=== PATIENT | male | born 1980 | race Caucasian/White ===

== ENCOUNTER 2020-12-28 09:05 | Outpatient (CLI) | payer BC, SELFPAY ==
--- NOTE | ~2020-12-28 | XR_ITS ---
XR chest 2V 12/28/2020 09:48 Indication: Chronic cough Procedure: 2 view chest Comparison: No prior studies for comparison. Findings: Heart size normal. Right lung clear. Left basilar atelectasis. No focal pneumonia, edema, p leural effusion or pneumothorax. Impression: 1: Left basilar atelectasis. Reviewed, dictated and finalized at location B. Impression: 1: Left basilar atelectasis.
--- NOTE | 2020-12-28 09:12 | ECG_ITS ---
Measurements Intervals [place] Rate: 56 P: 56 [place]: 165 QRS: 34 QRSD: 93 T: 41 QT: 392 QTc: 379 Interpretive Statements SINUS BRADYCARDIA BORDERLINE ECG Electronically Signed On 12-28-2020 10:38:55 CDT by Dave Nickerson D.O.
[2020-12-28 09:23] LABS: Basophils Absolute Auto 0.05 K/mm3 (0.00-0.10); Basophils Percent Auto 0.7 % (0.0-1.0); Eosinophils Absolute Auto 0.24 K/mm3 (0.02-0.50); Eosinophils Percent Auto 3.3 % (1.0-6.0); Hematocrit 46.3 % (40.0-54.0); Hemoglobin 15.8 g/dL (14.0-18.0); Immature Granulocyte Absolute 0.02 K/mm3 (0.00-0.00); Immature Granulocyte Percent A 0.3 % (0.0-0.0); Lymphocytes Absolute Auto 2.32 K/mm3 (1.10-4.50); Lymphocytes Percent Auto 32.1 % (18.0-42.0); Mean Corpuscular HGB Conc 34.1 g/dL (32.0-36.0); Mean Corpuscular Hemoglobin 33.5 pg (27.0-31.0); Mean Corpuscular Volume 98.3 fL (78.0-102.0); Mean Platelet Volume 9.1 fl (8.7-11.0); Monocytes Absolute Auto 0.56 K/mm3 (0.10-0.90); Monocytes Percent Auto 7.7 % (2.0-11.0); Neutrophils Percent Auto 55.9 % (50.0-70.0); Platelet Count Result 186 K/mm3 (150-420); Red Blood Count 4.71 M/mm3 (4.70-6.10); White Blood Count 7.2 K/mm3 (4.8-10.8)
[2020-12-28 09:42] LABS: Hemoglobin A1C 5.6 % (<5.7)
[2020-12-28 10:15] LABS: Alanine Aminotransferase 28 U/L (16-63); Alkaline Phosphatase 50 U/L (46-116); Anion Gap 11 mmol/L (8-16); Aspartate Amino Transferase 14 U/L (15-37); Bilirubin,Total 0.4 mg/dL (0.00-1.00); Blood Urea Nitrogen 15 mg/dL (7-18); Calcium 9.2 mg/dL (8.5-10.1); Carbon Dioxide 29 mmol/L (21-32); Chloride 103 mmol/L (98-108); Cholesterol 219 mg/dL (0-200); Estimated Glomerular Filt Rate > 60; Ferritin 200 ng/mL (26-388); Glucose 98 mg/dL (70-99); HDL Direct 53 mg/dL (40-60); Iron 121 ug/dL (65-175); LDL Cholesterol Calculated 132 mg/dL (<130); Osmolality Calculated 296 mOsm/kg (285-295); Percent Iron Saturation 36 % (12-57); Potassium 4.6 mmol/L (3.5-5.1); Sodium 143 mmol/L (136-145); Total Protein 7.2 g/dL (6.4-8.2); Triglycerides 172 mg/dL (0-150)
[2020-12-30 19:19] LABS: Hepatitis C Signal to Cutoff 0.01 ratio (<1.00); Hepatitis C Virus Antibody Nonreactive (Nonreactive)
== END 2020-12-28 09:06 | disposition home or self-care (01) ==
LOC: CHSLAB 09:11
PROVIDERS: PCP Family Medicine; Visit Provider Family Medicine
DX: R53.83 Other fatigue (principal); R05 Cough; Z00.00 Encounter for general adult medical examination without abnormal findings; Z11.59 Encounter for screening for other viral diseases
CPT/HCPCS: 36415; 71046; 80053; 80061; 82728; 83036; 83540; 83550; 84443; 85025; 93005

== ENCOUNTER 2021-02-06 09:43 | Outpatient (CLI) | payer BC, SELFPAY ==
--- NOTE | ~2021-02-06 | XR_ITS ---
XR hip RT min 2V DATE: 02/06/2021 11:37 INDICATION: Overall body sinus. Ankylosing spondylitis. TECHNIQUE: AP and lateral views COMPARISON: None FINDINGS: No fracture, dislocation, avascular necrosis or bone destruction. Right hip joint space fran ears well preserved. The pubic symphysis and right sacral joint appear intact. IMPRESSION: Negative Reviewed, dictated and finalized at location B. IMPRESSION: Negative
--- NOTE | ~2021-02-06 | XR_ITS ---
XR knee LT 3V DATE: 02/06/2021 11:37 INDICATION: Left knee pain. Overall body stiffness. Ankylosing spondylitis. TECHNIQUE: [place], AP and lateral views COMPARISON: None FINDINGS: No fracture or dislocation or joint effusion. No periosteal reaction or bone destruction. N o radiopaque intra-articular loose body or chondrocalcinosis. Joint spaces are well preserved. IMPRESSION: Negative Reviewed, dictated and finalized at location B. IMPRESSION: Negative
--- NOTE | ~2021-02-06 | XR_ITS ---
XR knee RT 3V DATE: 02/06/2021 11:37 INDICATION: Overall body stiffness. Ankylosing spondylitis. TECHNIQUE: Combine, AP and lateral views COMPARISON: None FINDINGS: No fracture or dislocation or joint effusion. No periosteal reaction or bone destruction. There is slight periarticular spurring of the patella consistent with osteoarthritis. Joint spaces ap pear well preserved. No radiopaque intra-articular loose body or chondrocalcinosis. IMPRESSION: Slight osteoarthritic periarticular spurring of the patella Reviewed, dictated and finalized at location B.
--- NOTE | ~2021-02-06 | XR_ITS ---
XR lumbar spine 2-3V DATE: 02/06/2021 11:36 INDICATION: Overall body stiffness. Ankylosing spondylitis. TECHNIQUE: AP, lateral, coned lateral lumbosacral views COMPARISON: None FINDINGS: Normal alignment of the lumbar spine. There is minimal degenerative spurring at L1-2 and L2 -3. No fracture or bone destruction or spondylolisthesis. The lumbar pedicles are intact. The sacroiliac joints appear normal. IMPRESSION: Minimal degenerative change Reviewed, dictated and finalized at location B. IMPRESSION: Minimal degenerative change
--- NOTE | ~2021-02-06 | XR_ITS ---
XR_CERV2-3V_CR DATE: 02/06/2021 11:36 INDICATION: Overall body stiffness. Ankylosing spondylitis. TECHNIQUE: AP, open-mouth, lateral views COMPARISON: 02/06/2021 thoracic spine FINDINGS: C1 and C2 are normally aligned and the odontoid process is intact. No fracture or dislocati on or locked facet or prevertebral soft tissue swelling. Cervical interspaces appear relatively prese rved. IMPRESSION: No significant abnormality Reviewed, dictated and finalized at Location A. Reviewed, dictated and finalized at location B. IMPRESSION: No significant abnormality
--- NOTE | ~2021-02-06 | XR_ITS ---
XR thoracic spine 2V DATE: 02/06/2021 11:36 INDICATION: Overall body stiffness. Ankylosing spondylitis. TECHNIQUE: Lateral, AP and swimmer views COMPARISON: None FINDINGS: Minimal upper thoracic levoscoliosis. No fracture or dislocation or bone destruction. The thoracic pedicles are intact. There is minimal degenerative spurring of the thoracic spine. IMPRESSION: Minimal degenerative spurring Minimal upper thoracic levoscoliosis Reviewed, dictated and finalized at location B.
--- NOTE | ~2021-02-06 | XR_ITS ---
XR hip LT min 2V DATE: 02/06/2021 11:36 INDICATION: Overall body stiffness. Ankylosing spondylitis. TECHNIQUE: AP and lateral views COMPARISON: None FINDINGS: No fracture or dislocation, avascular necrosis or bone destruction of the left hip is detec sarath. The pubic symphysis and sacroiliac joint appear normal. IMPRESSION: No significant abnormality Reviewed, dictated and finalized at location B. IMPRESSION: No significant abnormality
== END 2021-02-06 09:44 | disposition home or self-care (01) ==
LOC: CHSCARD 09:44
PROVIDERS: PCP Internal Medicine; Visit Provider Internal Medicine
DX: R06.02 Shortness of breath (principal); R05 Cough; M45.9 Ankylosing spondylitis of unspecified sites in spine
CPT/HCPCS: 72040; 72070; 72100; 73502; 73562; 94060; 94726; 94729; 95012

== ENCOUNTER 2021-02-10 08:25 | Outpatient (CLI) | payer BC, SELFPAY ==
--- NOTE | ~2021-02-10 | CT_ITS ---
EXAMINATION: CT sinus wo con DATE: 02/10/2021 09:15 INDICATION: Chronic sinusitis TECHNIQUE: Computed tomography (CT) of the paranasal sinuses was performed without contrast. Iterativ e reconstruction technique was employed. Exam dose: 289.66 mGy-cm total exam DLP. COMPARISON: None FINDINGS: There is leftward deviation of the lower nasal septum and mild rightward bowing of the uppe r nasal septum. The nasal turbinates are moderately prominent, right greater than left. The ostiomeatal units are patent bilaterally. 11 mm and 8 mm right maxillary sinus mucous retention cysts or polyps. 5.8 mm lower medial left maxil antonino mucous retention cyst or polyp. Mild focal soft tissue thickening in the frontoethmoid areas, right greater than left and mild mucope riosteal thickening of the ethmoid air cells. Sphenoid sinuses are unremarkable. The mastoid air cells are normally developed and aerated. Middle and inner ear apparatus appear unrem arkable bilaterally. IMPRESSION: Leftward deviation of the lower nasal septum and mild rightward bowing of the upper port ion of the nasal septum Mild soft tissue thickening of the frontoethmoid recesses, right greater than left Bilateral maxillary sinus mucous retention cysts or polyps Reviewed, dictated and finalized at Location A. Reviewed, dictated and finalized at location B. IMPRESSION: Leftward deviation of the lower nasal septum and mild rightward chad wing of the upper portion of the nasal septum Mild soft tissue thickening of the frontoethmoid recesses, right greater than l eft Bilateral maxillary sinus mucous retention cysts or polyps
--- NOTE | ~2021-02-10 | CT_ITS ---
EXAMINATION: CT diagnostic chest w con DATE: 02/10/2021 09:15 INDICATION: Left basilar opacity on chest radiograph TECHNIQUE: Transaxial computed tomographic images of the chest were obtained after the administration of 75 cc of Omnipaque 350 intravenous contrast. The dose-length product (DLP) was 735.71 mGy-cm. Ite rative reconstruction was used. COMPARISON: 12/28/2020 FINDINGS: The lungs are free acute opacities. There is mild atelectasis of the lingula and right midd le lobe. There is no pleural effusion or pneumothorax. There are a few scattered small pulmonary nodu les which measure up to 4 mm, likely old granulomatous disease. No pathologically enlarged thoracic l ymph nodes are identified. The heart size is normal. There is calcified coronary artery atheroscleros is. There is mild thoracic spondylosis. IMPRESSION: 1. No acute cardiopulmonary abnormality. 2. Coronary artery atherosclerosis, somewhat unexpected for patient age. Reviewed, dictated and finalized at location A.
[2021-02-10 08:52] LABS: Estimated Glomerular Filt Rate > 60
== END 2021-02-10 08:26 | disposition home or self-care (01) ==
LOC: CHSIMG 08:28
PROVIDERS: PCP Internal Medicine; Visit Provider Internal Medicine
DX: J32.9 Chronic sinusitis, unspecified (principal); R91.8 Other nonspecific abnormal finding of lung field
CPT/HCPCS: 70486; 71260; Q9967

== ENCOUNTER 2021-03-20 09:24 | Outpatient (CLI) | payer BC, SELFPAY ==
--- NOTE | 2021-03-20 10:10 | EST_ITS ---
Patient Info Name: Imtiaz Ballesteros Age: 40 years : 1980 Gender: Male Ht: 74 in Wt: 234 lbs BSA: 2.38 m2 Exam Date: 03/20/2021 10:14 AM Exam Location: [facility] Patient Status: Outpatient Admit Date: 03/20/2021 Staff Ordering Physician: Vashti Dixon MD Attending Provider: Vashti Dixon MD Exam Type: CA stress test treadmill Study Info A treadmill exercise stress test was performed. History/Risk Factors Family History: Coronary Artery Disease History/Risk Factors Fam hx, calcium build up found around heart. Summary 1. 1. Negative Rajat exercise stress test for ischemic ST changes by ECG criteria. 2. 2. Good functional capacity, achieving 10 METs of workload. 3. 3. Appropriate HR response to exercise. 4. 4. Appropriate HR recovery at 1 minute post exercise. 5. 5. No imaging with stress testing. Protocol: Rajat Stress ECG Details Stage: REST Duration (min): 0 min : 57 sec Speed (mph): 0.0 Grade (%): 0 HR (bpm): 69 SBP (mmHg): 122 DBP (mmHg): 81 METS: --- Stage: REST Duration (min): 2 min : 18 sec Speed (mph): 0.0 Grade (%): 0 HR (bpm): 70 SBP (mmHg): 122 DBP (mmHg): 81 METS: --- Stage: STAGE 1 Duration (min): 1 min : 0 sec Speed (mph): 1.7 Grade (%): 10 HR (bpm): 98 SBP (mmHg): 122 DBP (mmHg): 81 METS: --- Stage: STAGE 1 Duration (min): 2 min : 0 sec Speed (mph): 1.7 Grade (%): 10 HR (bpm): 105 SBP (mmHg): 122 DBP (mmHg): 81 METS: --- Stage: STAGE 1 Duration (min): 3 min : 0 sec Speed (mph): 1.7 Grade (%): 10 HR (bpm): 101 SBP (mmHg): 158 DBP (mmHg): 73 METS: --- Stage: STAGE 2 Duration (min): 1 min : 0 sec Speed (mph): 2.5 Grade (%): 12 HR (bpm): 110 SBP (mmHg): 158 DBP (mmHg): 73 METS: --- Stage: STAGE 2 Duration (min): 2 min : 0 sec Speed (mph): 2.5 Grade (%): 12 HR (bpm): 113 SBP (mmHg): 158 DBP (mmHg): 73 METS: --- Stage: STAGE 2 Duration (min): 3 min : 0 sec Speed (mph): 2.5 Grade (%): 12 HR (bpm): 113 SBP (mmHg): 168 DBP (mmHg): 85 METS: --- Stage: STAGE 3 Duration (min): 1 min : 0 sec Speed (mph): 3.4 Grade (%): 14 HR (bpm): 140 SBP (mmHg): 168 DBP (mmHg): 85 METS: --- Stage: STAGE 3 Duration (min): 2 min : 0 sec Speed (mph): 3.4 Grade (%): 14 HR (bpm): 160 SBP (mmHg): 168 DBP (mmHg): 85 METS: --- Stage: STAGE 3 Duration (min): 2 min : 0 sec Speed (mph): 3.4 Grade (%): 14 HR (bpm): 160 SBP (mmHg): 168 DBP (mmHg): 85 METS: --- Stage: RECOVERY Duration (min): 0 min : 59 sec Speed (mph): 0.0 Grade (%): 0 HR (bpm): 129 SBP (mmHg): 169 DBP (mmHg): 82 METS: --- Stage: RECOVERY Duration (min): 1 min : 59 sec Speed (mph): 0.0 Grade (%): 0 HR (bpm)
== END 2021-03-20 09:25 | disposition home or self-care (01) ==
LOC: CHSCARD 09:25
PROVIDERS: PCP Internal Medicine; Visit Provider Internal Medicine
DX: I25.10 Atherosclerotic heart disease of native coronary artery without angina pectoris (principal)
CPT/HCPCS: 93017

== ENCOUNTER 2023-09-18 16:27 | Outpatient (CLI) | payer BC, SELFPAY ==
--- NOTE | ~2023-09-18 | XR_ITS ---
EXAMINATION: XR chest 2V DATE: 09/18/2023 16:46 INDICATION: Atherosclerotic heart disease of [place] coronary artery. Preventative screening. TECHNIQUE: PA and lateral views of the chest were obtained. COMPARISON: Chest CT dated 02/10/21 FINDINGS: The lungs remain clear with no focal airspace opacities, pulmonary edema, pleural effusion or pneumot horax. The cardiomediastinal silhouette is normal. Mild thoracic spondylosis. IMPRESSION: 1. No acute cardiopulmonary disease. Reviewed, dictated and finalized at location B.
== END 2023-09-18 16:28 | disposition home or self-care (01) ==
LOC: CHSIMG 16:29
PROVIDERS: PCP Internal Medicine; Visit Provider Internal Medicine
DX: Z00.00 Encounter for general adult medical examination without abnormal findings (principal)
CPT/HCPCS: 71046

== ENCOUNTER 2023-10-21 18:52 | Emergency (ER) | payer BC, SELFPAY ==
[2023-10-21] VITALS (10 sets, daily range): BP systolic 112–136; BP diastolic 70–87; PULSE 74–93; RESP 17–21; TEMP 36.6–37.2; O2SAT 95–98
--- NOTE | ~2023-10-21 | XR_ITS ---
EXAMINATION: XR chest 1V portable DATE: 10/21/2023 19:38 INDICATION: Syncope. TECHNIQUE: A single frontal view of the chest was obtained on 2 radiographs. COMPARISON: Chest 2 views 09/18/2023 FINDINGS: There is no pneumonia, pleural effusion, or pneumothorax. The heart size is normal. IMPRESSION: 1. No acute cardiopulmonary disease. Reviewed, dictated and finalized at location E.
--- NOTE | ~2023-10-21 | CT_ITS ---
EXAMINATION: CT cervical spine wo con DATE: 10/21/2023 20:13 INDICATION: Syncope. Fall. TECHNIQUE: Computed tomography (CT) of the cervical spine was performed without intravenous contrast. Automated exposure control and iterative reconstruction technique were employed. The dose-length pro duct was 605.33 mGy-cm. COMPARISON: None FINDINGS: There is 6 degrees dextrocurvature of cervical spine. There is mild kyphosis of cervical sp ine. Vertebral body heights are normal. There is mildly decreased disc height at C5-C6. The following disc levels are specifically discussed: C2-C3: There is mild bilateral uncovertebral joint osteoarthritis. There is moderate bilateral facet joint osteoarthritis. There is no neural foraminal stenosis. There is no central canal stenosis. C3-C4: There is no uncovertebral joint osteoarthritis. There is mild right and moderate left facet katty int osteoarthritis. There is no neural foraminal stenosis. There is no central canal stenosis. C4-C5: There is no uncovertebral joint osteoarthritis. There is no facet joint osteoarthritis. There is no neural foraminal stenosis. There is no central canal stenosis. C5-C6: There is mild bilateral uncovertebral joint osteoarthritis. There is no facet joint osteoarthr itis. There is no neural foraminal stenosis. There is mild central canal stenosis. C6-C7: There is no uncovertebral joint osteoarthritis. There is moderate bilateral facet joint osteoa rthritis. There is no neural foraminal stenosis. There is no central canal stenosis. C7-T1: There is no uncovertebral joint osteoarthritis. There is severe bilateral facet joint osteoart hritis. There is mild bilateral neural foraminal stenosis. There is no central canal stenosis. IMPRESSION: 1. No fracture. 2. Mild cervical spondylosis. Reviewed, dictated and finalized at location E.
--- NOTE | ~2023-10-21 | CT_ITS ---
EXAMINATION: CT brain wo con DATE: 10/21/2023 20:13 INDICATION: Syncope. Fall. TECHNIQUE: Computed tomography (CT) of the head was performed without intravenous contrast. The mA wa s adjusted according to patient size. Iterative reconstruction technique was employed. The dose-lengt h product was 605.33 mGy-cm. COMPARISON: None FINDINGS: There is no intracranial hemorrhage, acute infarction, or abnormal intracranial mass lesion . The ventricles are normal in size. The orbits are normal. There is mucosal thickening in the parana ligia sinuses. There is a right mastoid effusion. There is a left otomastoid effusion. IMPRESSION: 1. Normal brain. Reviewed, dictated and finalized at location E. IMPRESSION: 1. Normal brain.
--- NOTE | 2023-10-21 19:11 | ECG_ITS ---
SEE SCANNED COPY FOR CONFIRMED REPORT MTDD
[2023-10-21 19:29] LABS: Basophils Absolute Auto 0.04 K/mm3 (0.00-0.10); Basophils Percent Auto 0.5 % (0.0-1.0); Eosinophils Absolute Auto 0.12 K/mm3 (0.02-0.50); Eosinophils Percent Auto 1.5 % (1.0-6.0); Hematocrit 42.5 % (40.0-54.0); Hemoglobin 13.9 g/dL (14.0-18.0); Immature Granulocyte Absolute 0.02 K/mm3 (0.00-0.00); Immature Granulocyte Percent A 0.3 % (0.0-0.0); Lymphocytes Absolute Auto 3.61 K/mm3 (1.10-4.50); Lymphocytes Percent Auto 46.2 % (18.0-42.0); Mean Corpuscular HGB Conc 32.7 g/dL (32-36); Mean Corpuscular Hemoglobin 31.6 pg (27.0-31.0); Mean Corpuscular Volume 96.6 fL (78.0-102.0); Mean Platelet Volume 9.3 fl (8.7-11.0); Monocytes Absolute Auto 0.61 K/mm3 (0.10-0.90); Monocytes Percent Auto 7.8 % (2.0-11.0); Neutrophils Absolute Auto 3.41 K/mm3 (1.70-7.20); Neutrophils Percent Auto 43.7 % (50.0-70.0); Platelet Count Result 146 K/mm3 (150-420); Red Cell Distribution Width 12.8 % (11.6-14.4); White Blood Count 7.8 K/mm3 (4.8-10.8)
[2023-10-21] MEDS: SODIUM CHLORIDE 0.9% IV 2,000 ML 999 ML IV CONT (19:48)
[2023-10-21] MEDS: ACETAMINOPHEN 500 MG TABLET 1000 MG PO (19:50)
[2023-10-21 19:52] LABS: Alanine Aminotransferase 35 U/L (16-63); Albumin Level 3.6 g/dL (3.4-5.0); Alkaline Phosphatase 42 U/L (46-116); Anion Gap 11 mmol/L (4-12); Aspartate Amino Transferase 22 U/L (15-37); Bilirubin,Total 0.3 mg/dL (0.00-1.00); Blood Urea Nitrogen 20 mg/dL (7-18); Calcium 8.2 mg/dL (8.5-10.1); Carbon Dioxide 24 mmol/L (21-32); Chloride 105 mmol/L (98-108); Creatine Kinase 254 U/L (39-308); Estimated Glomerular Filt Rate > 60; Ethanol 19 mg/dL (0-6); Glucose 95 mg/dL (70-99); NT Pro B Type Natriuretic Pept 12 pg/mL (0-125); Osmolality Calculated 292 mOsm/kg (285-295); Potassium 3.3 mmol/L (3.5-5.1); Sodium 140 mmol/L (136-145); Total Protein 6.8 g/dL (6.4-8.2); Troponin I 8.9 ng/L (0.00-60.4)
[2023-10-21 20:39] LABS: Amphetamine Screen Urine Negative (Negative); Barbiturate Screen Urine Negative (Negative); Benzodiazepines Screen Urine Negative (Negative); Cannabinoid Screen Urine Negative (Negative); Cocaine Screen Urine Negative (Negative); Methadone Screen Urine Negative (Negative); Opiate Screen Urine Negative (Negative); Phencyclidine Screen Urine Negative (Negative)
--- NOTE | 2023-10-21 21:00 | PC.NURSE ---
Pt is alert and answers questions appropriately at this time. He c/o feeling groggy and like his head is in a cloud. Pt reports feeling better c IVF. VSS.
--- NOTE | 2023-10-21 21:07 | ED.GENADULT ---
HPI - General Adult General Chief complaint: Syncope Stated complaint: neck pain History of Present Illness HPI narrative: This is a 43-year-old male presenting ED with chief complaint of syncope. The patient finished work around 4:00 a.m.. He went to his friend's house and had several beers with them. while he was sitting on a bench he lost consciousness and fell backwards and struck the back of his head. He then quickly regained consciousness and low he felt a little woozy he was back to normal. No tongue biting or urinary incontinence. This has happened To the patient 1 time the past although he did not seek medical attention at that time. Patient was out 85 degree heat today although he believes he drink plenty of water. No other symptoms such as current dizziness, chest pain difficulty breathing palpitations nausea vomiting or diarrhea. Related Data Home Medications Medication Instructions Recorded Confirmed montelukast 10 mg tablet 10 mg DAILY 10/21/23 10/21/23 prednisone 10 mg tablet 10 mg DAILY 10/21/23 10/21/23 Allergies Allergy/AdvReac Type Severity Reaction Status Date / Time poison catia extract Allergy Unknown unknown Verified 10/21/23 19:00 [facility] Past Medical History Medical History Allergies Annual visit for general adult medical examination without abnormal findings Chronic sinusitis Cough Encounter for HCV screening test for low risk patient Fatigue Seasonal allergies Surgical History Surgical History History of placement of ear tubes No history of previous surgery Family History Family History Father Family history of type 2 diabetes mellitus Social History Social History Smoking status: Former smoker Tobacco type: cigarettes Alcohol intake: current Substance use: never Substance use type: does not use Living arrangements: with family Additional living arrangements comments: . 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 Gender identity (if verbalized by the patient): Male Exam Narrative: APPEARANCE: No apparent distress. smells of beer Head: atraumatic. EYES: EOMI, NOSE: Atraumatic NECK: paracervical tenderness RESPIRATORY: No increased rate of breathing CTAB CARDIOVASCULAR: RRR, no peripheral edema ABDOMINAL: Non-distended soft nontender MUSCULOSKELETAl: No obvious deformities NEURO: Alert. Cranial nerves 2-12 grossly intact. Sensation light touch, motor function cerebellar function intact for 4 extremities. Gait exam was normal. SKIN:: Warm, dry. Normal color PSYCHIATRIC: Normal affect Course Vital Signs Vital signs: Vital Signs Temperature 98.9 F 10/21/23 18:52 Pulse Rate 87 10/21/23 18:52 Respiratory Rate 20 10/21/23 18:52 Blood Pressure 113/82 10/21/23 18:52 Pulse Oximetry 95 10/21/23 18:52 Oxygen Delivery Room Air 10/21/23 18:52 Temperature 98.9 F 10/21/23 18:52 Pulse Rate 86 10/21/23 20:46 Respiratory Rate 19 10/21/23 20:46 Blood Pressure 134/82 10/21/23 20:46 Pulse Oximetry 97 10/21/23 19:45 Oxygen Delivery Room Air 10/21/23 19:07 Medical Decision Making [facility] Narrative Medical decision making narrative: -Course: 43-year-old male presenting with a syncopal event. workup including EKG laboratory studies chest x-ray and troponin were all negative. Alcohol 19. Patient was fluid resuscitated and states he feels much better. He is able to get up and ambulate without difficulty. No high risk factors to the patient's syncope. He will be discharged follow-up with primary care physician. -DDX includes but is not limited to: Syncope, seizure, narcoleptsy, alcohol intoxication -Co-morbidities complicating care: asthma -Social det
== END 2023-10-21 21:26 | disposition home or self-care (01) ==
PROVIDERS: Emergency Provider Emergency Medicine; PCP Internal Medicine
DX: R55 Syncope and collapse (principal); Z87.891 Personal history of nicotine dependence
CPT/HCPCS: 36415; 70450; 71045; 72125; 80053; 80307; 82550; 83880; 84484; 85025; 93005; 96360; 99284; J7030

== ENCOUNTER 2023-12-04 16:14 | Outpatient (CLI) | payer BC, SELFPAY ==
--- NOTE | 2024-01-06 07:56 | P.PCNHOL_ITS ---
Holter/Event Monitor Holter/Event Monitor Date of procedure: 12/04/23 Holter/Event Procedure: Event Monitor Indications: Syncope Conclusion: 1. 28 days event monitor between 12/04/23-01/02/24. There are 20 available tr ansmissions for analysis. 2. Underlying rhythm is sinus rhythm. HR range 50-120 bpm; average HR 85 bpm. 3. There are occasional premature supraventricular complexes with total burden of 1%. No supraventricular tachycardia. 4. There are occasional premature ventricular complexes with total burden of 1%. No ventricular tachycardia. 5. No significant pauses greater than 2 seconds. 6. Patient reports 14 episodes of symptoms of lightheadedness and symptoms other than listed which demonstrate sinus rhythm, HR range 70-110 bpm with one PAC.
== END 2023-12-04 16:15 | disposition home or self-care (01) ==
LOC: CHSCARD 16:15
PROVIDERS: PCP Internal Medicine; Visit Provider Internal Medicine
DX: R55 Syncope and collapse (principal)
CPT/HCPCS: 93270

== ENCOUNTER 2024-12-11 15:01 | Outpatient (CLI) | payer BC, SELFPAY ==
--- NOTE | ~2024-12-11 | XR_ITS ---
EXAMINATION: XR ribs RT 2V w CXR 2V Exam Date/Time: 12/11/2024 15:08 CDT HISTORY: Injury ribs and chest wall,RT UPPER LATERAL/AXILLARY Comparison: 10/21/2023. RESULT: Lines, tubes, and devices: None. Lungs and pleura: Clear. Cardiothymic silhouette: Stable. Other: No acute osseous or upper abdominal finding. IMPRESSION: No acute cardiopulmonary process. No acute osseous finding in the right ribs. Reviewed, dictated and finalized at location K.
--- OUTSIDE RECORDS SUMMARY | 2024-12-11 15:04 | XMS_ITS | Clinical Summary ---
Author Organization [facility] Address [address] [place] [address] Care Team Providers Care Lav Crewman Name Role Phone Vashti Dixon MD Primary Care Provider + [phone] Allergies Active Allergy Reactions Criticality Noted Date Comments Mold Sneezing Low 10/31/2021 Ragweed Sneezing Low 10/31/2021 Medications celecoxib (CeleBREX) 400 mg capsule Take 1 capsule (400 mg total) by mouth daily 10/02/2021 Active cetirizine (ZyrTEC) 10 mg tablet Take 1 tablet (10 mg total) by mouth daily 09/30/2021 Active fluticasone propionate (FLONASE) 50 mcg/actuation nasal spray INSTILL 2 SPRAYS INTO EACH NOSTRIL EVERY DAY 09/30/2021 Active meloxicam (MOBIC) 7.5 mg tablet Take 1 tablet (7.5 mg total) by mouth daily 30 tablet 2 10/31/2021 Active montelukast (SINGULAIR) 10 mg tablet Take 1 tablet (10 mg total) by mouth nightly Active aspirin 81 mg chewable tablet Take 1 tablet (81 mg total) by mouth daily 30 tablet 11 10/05/2024 Active sertraline (ZOLOFT) 50 mg tablet Take 1 tablet (50 mg total) by mouth daily 30 tablet 1 10/05/2024 Active losartan (COZAAR) 25 mg tablet Take 0.5 tablets (12.5 mg total) by mouth daily 45 tablet 3 11/12/2024 Active atorvastatin (LIPITOR) 10 mg tablet Take 1 tablet (10 mg total) by mouth daily Active Active Problems Problem Noted Date Diagnosed Date Chest pain 10/05/2024 Chest pain due to myocardial ischemia, unspecified ischemic chest pain type 10/03/2024 Encounters Date Type Department Care Team Description 12/01/2024 Orders Only [facility] [address] [place] [id number] Dayday Moore NP 11/12/2024 10:45 AM CDT Office Visit [facility] at [facility] [address] [facility] [address] [place] [id number] Dayday Moore NP Chest pain due to myocardial ischemia, unspecified ischemic chest pain type (Primary Dx); Hypertension, unspecified type; Hyperlipidemia, unspecified hyperlipidemia type 10/08/2024 [facility] Post Discharge Follow up phone call [facility] [address] [place] [address] Karen Carroll 10/05/2024 1:00 PM CDT - 10/05/2024 2:05 PM CDT Surgery [facility] Cardiac Catheterization [address] [place] [address] Cuba Jade MD CORONARY ANGIOGRAPHY [id number] 10/03/2024 9:46 AM CDT - 10/05/2024 3:12 PM CDT Hospital Encounter [facility] IMU [address] [place] [address] Lacy العراقي MD Sinha, Chandni, MD Nikolic, Jelena, MD Chest pain due to myocardial ischemia, unspecified ischemic chest pain type (Primary Dx) Discharge Disposition: Discharge to home or self care 10/03/2024 9:28 AM CDT - 10/03/2024 11:59 PM CDT Hospital Encounter [facility] Emergency, Room R Discharge Disposition: Discharge to home or self care from Last 3 Months Surgical History Surgery Date Site/Laterality Comments CARDIAC CATHETERIZATION 10/05/2024 N/A Procedure: CORONARY ANGIOGRAPHY [id number]; Surgeon: Cuba Jade MD; Location: [facility] CARDIAC TECHNICAL SUPERVISOR; Service: Cardiovascular; Laterality: N/A; CARDIAC CATHETERIZATION 10/05/2024 N/A Procedure: LEFT HEART CATHETERIZATION WITH CORONARY ANGIOGRAPHY AND WITH OR WITHOUT LEFT VENTRICULOGRAM [id number]; Surgeon: Cuba Jade MD; Location: [facility] CARDIAC TECHNICAL SUPERVISOR; Service: Cardiovascular; Laterality: N/A; CARDIAC CATHETERIZATION 10/05/2024 N/A Procedure: Coronary Flow Velocity (CFR) / Instantaneous Flow Velocity (IFR), 1st Vessel; Surgeon: Cuba Jade MD; Location: [facility] CARDIAC TECHNICAL SUPERVISOR; Service: Cardiovascular; Laterality: N/A; Family History Medical History Relation Name Comments Heart disease Father Other Father Heart disease Mother Other Mother Relation Name Status Comments Father Mother Social History Tobacco Use Types Packs/Day Years Used Date Smoking Tobacco: Every Day Cigarettes 0.2 3.3 Started: 09/05/2021 Tobacco Cessation:Ready to Q uit: Not Asked; Counseling Given: Not Answered [facility] Utilities Answer Date Recorded In the past 12 months has e electric, gas, oil, or water eBOOK Initiative [place] threatened to shut off services in your home? No 10/05/2024 Social Connection and Isolat ion Panel [NHANES] Answer Date Recorded In a typical week, how many times do you talk on the phone with family, friends, or neighbors? More than three times a week 10/05/2024 How often do you get togethe r with friends or relatives? Three times a week 10/05/2024 Attends Zoroastrianism Services Not on file 10/05 Do you belong to any clubs o r organizations such as mu-ism groups, unions, fraternal or athletic groups, or school groups? No 10/05/2024 How often do you attend meet ings of the clubs or organizations you belong to? Never 10/05/2024 Are you , , di vorced, , never , or living with a partner? 10/05/2024 Overall Financial Resource Strain (CARDIA) Answe r Date Recorded How hard is it for you to pa y for the very basics like food, housing, medical care, and heating? Not very hard 10/05/2024 Hunger Vital Sign Answer Date Recorded Within the past 12 months, y ou worried that your food would run out before you got the money to buy more. Never true 10/06/19 25 Within the past 12 months, t he food you bought just didn't last and you didn't have money to get more. Never true 10/05/2024 PRAPARE - Transportation Answer Date Re corded In the past 12 months, has l ack of transportation kept you from medical appointments or from getting medications? No 09/07 In the past 12 months, has l ack of transportation kept you from meetings, work, or from getting things needed for daily living? No 10/05/2024 Housing Stability Vital Sign Answer Sabas e Recorded In the last 12 months, was t here a time when you were not able to pay the mortgage or rent on time? No 10/05/2024 In the past 12 months, how m any times have you moved where you were living? 0 10/05/2024 At any time in the past 12 m [facility], were you homeless or living in a chcf (including now)? No 10/05/2024 Personal Safety Answer Date Recorded Have you ever been in or are you currently in a harmful physical or emotional relationship or is someone making you feel afraid or unsafe? 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 Gender Identity Not on file Sexual Orientation Not on file Obstetrics History Last Filed Vital Signs Vital Sign Reading Time Taken Comments Blood Pressure 127/90 11/12/2024 10:58 AM CDT Pulse 65 11/12/2024 10:58 AM CDT Temperature 36.8 C (98.2 F) 10/05/2024 7:34 AM CDT Respiratory Rate 18 11/12/2024 10:58 AM CDT Oxygen Saturation 96% 10/05/2024 2:15 PM CDT Inhaled Oxygen Concentration - - Weight 101.6 kg (224 lb) 11/12/2024 10:58 AM CDT Height 188 cm (6' 2) 11/12/2024 10:58 AM CDT Body Mass Index 28.76 11/12/2024 10:58 AM CDT Plan of Treatment Health Maintenance Due Date Last Done Comments Colon Cancer Screening-Colonoscopy 1980 Depression Screening 1980 Hepatitis C Screening 1979 DTaP/Tdap/Td Vaccine (1 - Tdap) 1990 Varicella Vaccines (1 of 2 - 13+ 2-dose series) 1992 Hepatitis B Screening 1997 Regular Well Visit/Exam 18-64 1997 Pneumococcal vaccine <65 (1 of 2 - PCV) 1998 Influenza Vaccine (Season Ended) 2025 HPV Vaccines Aged Out No longer eligi ble based on patient's age to complete this topic Procedures Procedure Name Priority Date/Time Associated Diagnosis Comments BASIC METABOLIC PANEL Routine 12/01/2024 1:09 PM CDT CORONARY FLOW VELOCITY (CFR) / INSTATANEOUS FLOW VELOCITY (IFR), 1ST VESSEL Routine 10/05/2024 12:04 PM CDT Chest pain due to myocardial ischemia, unspecified ischemic chest pain type LEFT HEART CATHETERIZATION WITH CORONARY ANGIOGRAPHY AND WITH AND WITHOUT LEFT VENTRICULOGRAM Routine 10/05/2024 12:04 PM CDT Chest pain due to myocardial ischemia, unspecified ischemic chest pain type LEFT CORONARY ANGIOGRAPHY Routine 10/05/2024 12:04 PM CDT Chest pain due to myocardial ischemia, unspecified ischemic chest pain type TRANSTHORACIC ECHO (TTE) COMPLETE W DOPPLER/CF WO CONTRAST Routine 10/05/2024 8:52 AM CDT EGFR Routine 10/05/2024 5:03 AM CDT APTT Timed 10/05/2024 5:03 AM CDT MAGNESIUM Routine 10/05/2024 5:03 AM CDT COMPREHENSIVE METABOLIC PANEL Routine 10/05/2024 5:03 AM CDT APTT Timed 10/04/2024 9:46 AM CDT EGFR Routine 10/04/2024 4:03 AM CDT DIFFERENTIAL AUTO Routine 10/04/2024 4:0 3 AM CDT HEMOGLOBIN A1C Routine 10/04/2024 4:03 AM CDT LIPID PANEL Routine 10/04/2024 4:03 AM CDT CBC WITH AUTO DIFFERENTIAL Routine 10/04/2024 4:03 AM CDT MAGNESIUM Routine 10/04/2024 4:03 AM CDT COMPREHENSIVE METABOLIC PANEL Routine 10/04/2024 4:03 AM CDT APTT Timed 10/04/2024 4:03 AM CDT APTT Timed 10/03/2024 7:29 PM CDT TROPONIN T HIGH-SENSITIVITY 6-HOUR Timed 10/03/2024 3:47 PM CDT TROPONIN T HIGH-SENSITIVITY 4-HR Timed 10/03/2024 2:[address] CHEST PE W CONTRAST ED 1:25 PM CDT TROPONIN T HIGH-SENSITIVITY 2-HOUR Timed 10/03/2024 12:41 PM CDT CBC WITHOUT DIFFERENTIAL STAT 10/03/2024 11:54 AM CDT ETHANOL Add-On 10/03/2024 11:54 AM CDT XR CHEST PA LATERAL 2 VIEWS ED 10/03/2024 10:17 AM CDT APTT STAT 10/03/2024 10:01 AM CDT PROTIME-INR STAT 10/03/2024 10:01 AM CDT EGFR STAT 10/03/2024 10:01 AM CDT DIFFERENTIAL AUTO STAT 10/03/2024 10: 01 AM CDT TROPONIN T HIGH-SENSITIVITY SERIES (BASELINE, 2HR, 4HR, 6HR) STAT 10/03/2024 10:01 AM CDT COMPREHENSIVE METABOLIC PANEL STAT 10/03/2024 10:01 AM CDT CBC WITH AUTO DIFFERENTIAL STAT 10/03/2024 10:01 AM CDT ECG 12-LEAD STAT 10/03/2024 9:51 AM CDT from Last 3 Months Results * Basic metabolic panel (12/01/2024 1:09 PM CDT) [facility] Glucose 73 65 - 99 mg/dL [facility] Comment: Fasting reference interval BUN 18 7 - 25 mg/dL [facility] Creatinine 0.87 0.60 - 1.29 mg/dL [facility] eGFR 108 > OR = 60 mL/min/1.7 3m2 [facility] BUN/creat ratio SEE NOTE: 6 - 22 (calc) [facility] Comment: Not Reported: BUN and Creatinine are within reference range. Sodium 139 135 - 146 mmol/L [facility] Potassium, pl 4.6 3.5 - 5.3 mmol/L [facility] Chloride 102 98 - 110 mmol/L [facility] CO2 23 20 - 32 mmol/L [facility] Calcium 9.4 8.6 - 10.3 mg/dL [facility] 12/01/2024 1:09 PM CDT 12/01/2024 1:10 PM CDT us Dayday Moore FIXED INCOME DIRECTOR LAB BLOOD ORDERABLES Final R esult [facility] [address] [address] [id number] * LEFT CORONARY ANGIOGRAPHY, LEFT HEART CATHETERIZATION WITH CORONARY ANGIOGRAPHY AND WITH AND WITHOUT LEFT VENTRICULOGRAM, CORONARY FLOW VELOCITY (CFR) / INSTATANEOUS FLOW VELOCITY (IFR), 1ST VESSEL (10/05/2024 12:04 PM CDT) Anatomical Region Laterality Modality X-Ray Angiograph y Narrative 10/06/2024 7:21 AM CDT Attending: Cuba Jade MD Indication: NSTEMI Procedure(s): 1. Left heart catheterization 2. Coronary angiography 3. IFRr to LAD Consent obtained: YES Timeout: done; correct procedure, patient and site of access. Drug allergies noted. Sedation Moderate sedation was done using versed 4 mg & fentanyl 100 mcg. Sedation start time 11:45 & sedation end time 12:04. Sedation was administered under my supervision and LUIS Alfonso in the room with continuous monitoring of patient's vital signs, airway and hemodynamic. Sedation was tolerated very well by the patient and at the end of the procedure patient was conscious. See procedure log for further details. Access: Site: Rt radial artery Technique: Modified Sildenger technique with fluoroscopy and US guidance Sheath size: 6 F Coronary angiography: Catheters were advanced over wire under fluoroscopy for selective coronary angiography. Wire was removed and catheter was flushed with saline. Coronary angiogram was recorded in different projections. Catheters removed and sheath flushed. Following catheter used for coronary angiograms TIG Hemodynamic findings: Arterial pressure: 130/70 mmHg LVEDP: 15 mmHg No gradient across AV Angiographic findings: 1. Left main: Bifurcates into LAD and LCX. There was no angiographic significant disease 2. LAD: Normal anatomic course, gives to diagonal branches. Mid LAD calcified lesion with 30% stenosis 3. LCX: Normal anatomic course, gives to OM branches. There was no angiographic significant disease. 4. RCA: Normal anatomic course, gives to PDA and PLV branches. There was no angiographic significant disease. Dominance: Right IFR details: Lesion # 1: Anticoagulation with Angiomax Guide catheter: TIG4 used to selectively engage the coronary artery under fluoroscopy and 2 orthogonal views of the coronary lesion were documented Guide wire: IFR wire advanced distal to lesion after equalization IFR measured as 0.96 Wire removed and repeat Angiography showed no dissection or distal embolization or perforation. Closure: artery closure with radial compression band Immediate post procedure access site: no hematoma, and distal pulse is unchanged Complications: None Estimated blood loss: minimal Specimen: none Conclusion: Nonobstructive coronary artery disease mid LAD 30% stenosis calcified lesion negative by IFR Recommendation 1. Risk factors modification 2. Aspirin 81 mg daily Jonathan Weathers MD CV CARDIAC CATH PROCEDURES F inal Result * TRANSTHORACIC ECHO (TTE) COMPLETE W DOPPLER/CF WO CONTRAST (10/05/2024 8:52 AM CDT) Anatomical Region Laterality Modality Ultrasound 10/05/2024 9:17 AM CDT Narrative 10/05/2024 10:48 AM CDT [address] [address] Echocardiogram Report Patient Name: MALCOM NANCE D : 1980 Study Date: 10/05/2024 9:17:03 AM Gender: M Tech: AA Location: [id number] [facility] Provider: JONATHAN WEATHERS Height(Cm): BSA: Weight(Kg): Quality: Good Order Provider: JONATHAN WEATHERS PROCEDURES: Echocardiographic Report: Transthoracic echocardiogram with complete 2D, M-Mode, and color Doppler examination. INDICATIONS: Chest Pain. MEASUREMENTS: 2D/MM Value Range Doppler Value Range EF Teich 2D 60.1 % [ 52.0 - 72.0 ] CHARO Vmax 4.05 cm2 EF Mod BP 65 % [ 52 - 72 ] AV Mean PG 3 mmHg LVIDd 2D 4.91 cm [ 4.20 - 5.80 ] AV Peak Iglesia 1.06 m/s [ 1.00 - 1.70 ] LVIDs 2D 3.34 cm [ 2.50 - 4.00 ] AV VTI 23.23 cm LVPWd 2D 1.19 cm [ 0.60 - 1.00 ] LVOT Diam 2.42 cm IVSd 2D 1.22 cm [ 0.60 - 1.00 ] LVOT Peak Iglesia 0.94 m/s [ 0.70 - 1.10 ] LA Dimension MM 4.18 cm [ 3.00 - 4.00 ] LVOT VTI 20.23 cm AoR Diam MM 3.43 cm [ 3.10 - 3.70 ] MV E Peak Iglesia 0.75 m/s [ 0.60 - 1.30 ] ACS MM 2.22 cm [ 1.50 - 2.60 ] MV A Peak Iglesia 0.67 m/s [ 1.00 - 1.20 ] MV Mean PG 1 mmHg MV PHT 56 msec [ 20 - 100 ] MVA 2.30 MV Decel Time 193 msec [ 104 - 258 ] PV Peak Iglesia 0.99 m/s [ 0.40 - 0.80 ] TR Peak Iglesia 1.87 m/s [ 1.00 - 2.80 ] TR Peak PG 14 mmHg RVSP 19.00 mmHg [ 10.00 - 36.00 ] E` 0.08 m/s E/E` 9.10 [ <= 10.00 ] PA Pressure 5.00 mmHg [ 10.00 - 36.00 ] 2D/MM Value Range Doppler Value Range - FINDINGS: Atrial Septum: Normal atrial septum. Left Ventricle: Normal left ventricular systolic function with no focal wall motion abnormalities. Normal left ventricular size. Mild concentric left ventricular hypertrophy. Normal left ventricular diastolic function. Ejection fraction is measured at 65 %. Left Atrium: The left atrium is normal in size. Right Ventricle: Normal right ventricular size. Normal right ventricular systolic function. Right Atrium: The right atrium is normal in size. Aortic Valve: Normal structure of the aortic valve. Mitral Valve: Normal structure of the mitral valve. Pulmonic Valve: Mild pulmonic regurgitation. Tricuspid Valve: Normal right ventricular systolic pressure. Estimated peak RVSP is 30 mmHg. Mild tricuspid regurgitation. Pericardium: Normal pericardium with no significant pericardial effusion. Aorta: Normal aortic root. Sinus of Valsalva is normal. Aortic arch is normal. Descending aorta is normal. IVC: Normal size and normal respiratory collapse consistent with normal right atrial pressure (<5 mmHg). Pulmonary Artery: Normal pulmonary artery size. CONCLUSIONS: Normal left ventricular systolic function with no focal wall motion abnormalities. Normal left ventricular size. Mild concentric left ventricular hypertrophy. Normal left ventricular diastolic function. Ejection fraction is measured at 65 %. Normal right ventricular systolic pressure. Estimated peak RVSP is 30 mmHg. Mild tricuspid regurgitation. Mild pulmonic regurgitation. Electronically Signed By: Harry Roach MD 10/05/2024 10:47:51 AM CDT Procedure Note Harry Roach MD - 10/05/[address] [address] Echocardiogram Report Patient Name: MALCOM NANCE D : 1980 Study Date: 10/05/2024 9:17:03 AM Gender: M Tech: AA Location: [id number] Ref Provider: JONATHAN WEATHERS Height(Cm): BSA: Weight(Kg): Quality: Good Order Provider: JONATHAN WEATHERS PROCEDURES: Echocardiographic Report: Transthoracic echocardiogram with complete 2D, M-Mode, and color Dopplerexamination. INDICATIONS: Chest Pain. MEASUREMENTS: 2D/MM Value Range Doppler ValueRange EF Teich 2D 60.1 % [ 52.0 - 72.0 ] CHARO Vmax 4.05cm2 EF Mod BP 65 % [ 52 - 72 ] AV Mean PG 3 mmHg LVIDd 2D 4.91 cm [ 4.20 - 5.80 ] AV Peak Iglesia 1.06 m/s[ 1.00 - 1.70 ] LVIDs 2D 3.34 cm [ 2.50 - 4.00 ] AV VTI 23.23cm LVPWd 2D 1.19 cm [ 0.60 - 1.00 ] LVOT Diam 2.42cm IVSd 2D 1.22 cm [ 0.60 - 1.00 ] LVOT Peak Iglesia 0.94 m/s[ 0.70 - 1.10 ] LA Dimension MM 4.18 cm [ 3.00 - 4.00 ] LVOT VTI 20.23cm AoR Diam MM 3.43 cm [ 3.10 - 3.70 ] MV E Peak Iglesia 0.75 m/s[ 0.60 - 1.30 ] ACS MM 2.22 cm [ 1.50 - 2.60 ] MV A Peak Iglesia 0.67 m/s[ 1.00 - 1.20 ] MV Mean PG 1 mmHg MV PHT 56 msec [ 20 - 100 ] MVA 2.30 MV Decel Time 193 msec [ 104 - 258 ] PV Peak Iglesia 0.99 m/s [ 0.40 - 0.80 ] TR Peak Iglesia 1.87 m/s [ 1.00 - 2.80 ] TR Peak PG 14 mmHg RVSP 19.00 mmHg [ 10.00 - 36.00 ] E` 0.08 m/s E/E` 9.10 [ <= 10.00 ] PA Pressure 5.00 mmHg [ 10.00 - 36.00 ] 2D/MM Value Range Doppler ValueRange - FINDINGS: Atrial Septum: Normal atrial septum. Left Ventricle: Normal left ventricular systolic function with no focal wall motionabnormalities. Normal left ventricular size. Mild concentric left ventricular hypertrophy.Normal left ventricular diastolic function. Ejection fraction is measured at 65 %. Left Atrium: The left atrium is normal in size. Right Ventricle: Normal right ventricular size. Normal right ventricular systolicfunction. Right Atrium: The right atrium is normal in size. Aortic Valve: Normal structure of the aortic valve. Mitral Valve: Normal structure of the mitral valve. Pulmonic Valve: Mild pulmonic regurgitation. Tricuspid Valve: Normal right ventricular systolic pressure. Estimated peak RVSP is 30mmHg. Mild tricuspid regurgitation. Pericardium: Normal pericardium with no significant pericardial effusion. Aorta: Normal aortic root. Sinus of Valsalva is normal. Aortic arch is normal.Descending aorta is normal. IVC: Normal size and normal respiratory collapse consistent with normal rightatrial pressure (<5 mmHg). Pulmonary Artery: Normal pulmonary artery size. CONCLUSIONS: Normal left ventricular systolic function with no focal wall motionabnormalities. Normal left ventricular size. Mild concentric left ventricular hypertrophy.Normal left ventricular diastolic function. Ejection fraction is measured at 65 %. Normal right ventricular systolic pressure. Estimated peak RVSP is 30mmHg. Mild tricuspid regurgitation. Mild pulmonic regurgitation. Electronically Signed By: Harry Roach MD 10/05/2024 10:47:51 AM CDT Jonathan Weathers MD CV ECHO PROCEDURES Final Res ult * eGFR (10/05/2024 5:03 AM CDT) eGFR >90 >=60 mL/min/1. 73 m2 Comment: Interpretive Data Reference Interval Normal >/= 90 mL/min/1.73m2 Mildly decreased* 60 - 89 mL/min/1.73m2 Mildly to moderately decreased 45 - 59 mL/min/1.73m2 Moderately to severely decreased 30 - 44 mL/min/1.73m2 Severely decreased 15 - 29 mL/min/1.73m2 Kidney Failure < 15 mL/min/1.73m2 *Relative to young adult level Estimated glomerular filtration rate is determined by the 2020 CKD-EPI equation recommended by the National Kidney Foundation (A Unifying Approach to GFR Estimation: Recommendations of the NKF-ASK Task Force on Reassessing the Inclusion of Race in Diagnosing Kidney Disease, JASN 2020). The CKD-EPI equation should not be used for patients with unstable renal function and has not been validated in children and those over 70. Current interpretive data was last reviewed 2021. Blood 10/05/2024 5:03 AM CDT 10/05/2024 5:27 AM CDT us Karen Bazan MD LAB BLOOD ORDERABLES nal Result [facility] ([place]) [address] [facility] [place] [address] * (ABNORMAL) aPTT (10/05/2024 5:03 AM CDT) aPTT 73(H) 28 - 38 sec [facility] ([place]) Comment: Interpretive Data Heparin therapeutic range: 66.0 - 100.0 seconds. Range based on correlation with therapeutic heparin activity range of 0.3 - 0.7 Units/mL. Current interpretive data was last revised on 2023. Blood 10/05/2024 5:03 AM CDT 10/05/2024 5:27 AM CDT us Syeda Hunt MD LAB BLOOD ORDERABLES Final Resu lt [facility] ([place]) [facility] [place] [address] * Magnesium (10/05/2024 5:03 AM CDT) Magnesium 2.0 1.4 - 2.5 mg/dL Blood 10/05/2024 5:03 AM CDT 10/05/2024 5:27 AM CDT us Karen Baazn MD LAB BLOOD ORDERABLES Fi nal Result Performing Organization Address [facility] Co de Phone Number JULIA HERNANDEZ ([place]) [address] [facility] [place] [address] * (ABNORMAL) Comprehensive metabolic panel (10/05/2024 5:03 AM CDT) Sodium 140 135 - 145 mmol/L Potassium, pl 3.8 3.3 - 4.9 mmol/L [facility] ([place]) Chloride 106 97 - 110 mmol/L [facility] ([place]) CO2 25 22 - 32 mmol/L [facility] ([place]) Anion gap 9 2 - 15 mmol/L [facility] ([place]) BUN 11 6 - 25 mg/dL [facility] ([place]) Creatinine 0.91 0.80 - 1.30 mg/dL [facility] ([place]) Glucose 98 70 - 199 mg/dL [facility] ([place]) Comment: Interpretive Data Fasting glucose >/= 126 mg/dl is diagnostic for diabetes. Fasting is defined as no caloric intake for at least 8 hours. Fasting glucose between 100 mg/dl to 125 mg/dl is diagnostic of prediabetes. In a patient with classic symptoms of hyperglycemia or hyperglycemic crisis, a random glucose >/= 200 mg/dl is diagnostic for diabetes. In the absence of unequivocal hyperglycemia, results should be confirmed by repeat testing. The classification and Diagnosis of Diabetes Diabetes Care 202; 46: S19-S40. Current interpretive data was last revised 2022. Calcium 8.7 8.5 - 10.3 mg/dL [facility] ([place]) Bilirubin, total 0.2 0.1 - 1.2 mg/dL [facility] ([place]) Protein, pl 5.9(L) 6.5 - 8.5 g/dL [facility] ([place]) Albumin 3.8 3.5 - 5.0 g/dL [facility] ([place]) Alk phos 39(L) 40 - 130 Units/L [facility] ([place]) ALT 21 7 - 55 Units/L [facility] ([place]) AST 18 10 - 50 Units/L [facility] ([place]) Blood 10/05/2024 5:03 AM CDT 10/05/2024 5:27 AM CDT us Karen Bazan MD LAB BLOOD ORDERABLES Fi nal Result [facility] ([place]) [address] [facility] [place] [address] * (ABNORMAL) aPTT (10/04/2024 9:46 AM CDT) aPTT 83(H) 28 - 38 sec [facility] ([place]) Comment: Interpretive Data Heparin therapeutic range: 66.0 - 100.0 seconds. Range based on correlation with therapeutic heparin activity range of 0.3 - 0.7 Units/mL. Current interpretive data was last revised on 2023. Blood 10/04/2024 9:46 AM CDT 10/04/2024 9:48 AM CDT Narrative [facility] ([place]) - 10/04/2024 10:00 AM CDT Do not draw lab from IV line that is actively infusing heparin. Use the opposite arm. If arm with actively infusing heparin must be used, pause the infusion for at least 2 minutes, and draw specimen below the IV site. For patients with a central venous catheter (CVC), lab must be drawn peripherally (not from CVC). us Syeda Hunt MD LAB BLOOD ORDERABLES Final Resu lt [facility] ([place]) [address] [facility] [place] [address] * eGFR (10/04/2024 4:03 AM CDT) Pathologist [facility] [place] eGFR >90 >=60 mL/min/1. 73 m2 Comment: Interpretive Data Reference Interval Normal >/= 90 mL/min/1.73m2 Mildly decreased* 60 - 89 mL/min/1.73m2 Mildly to moderately decreased 45 - 59 mL/min/1.73m2 Moderately to severely decreased 30 - 44 mL/min/1.73m2 Severely decreased 15 - 29 mL/min/1.73m2 Kidney Failure < 15 mL/min/1.73m2 *Relative to young adult level Estimated glomerular filtration rate is determined by the 2020 CKD-EPI equation recommended by the National Kidney Foundation (A Unifying Approach to GFR Estimation: Recommendations of the NKF-ASK Task Force on Reassessing the Inclusion of Race in Diagnosing Kidney Disease, JASN 2020). The CKD-EPI equation should not be used for patients with unstable renal function and has not been validated in children and those over 70. Current interpretive data was last reviewed 2021. Blood 10/04/2024 4:03 AM CDT 10/04/2024 4:19 AM CDT us Karen Bazan MD LAB BLOOD ORDERABLES Fi nal Result JULIA HERNANDEZ ([place]) 1 [facility] [place] [address] * Differential, auto (10/04/2024 4:03 AM CDT) Neutrophil abs 3.3 1.5 - 6.5 K/cumm Imm gran abs 0.0 0.0 - 0.1 K/cumm [facility] ([place]) Lymphocyte abs 2.2 0.8 - 3.3 K/cumm [facility] ([place]) Monocyte abs 0.6 0.2 - 0.8 K/cumm [facility] ([place]) Eosinophil abs 0.2 0.0 - 0.5 K/cumm [facility] ([place]) Basophil abs 0.0 0.0 - 0.1 K/cumm [facility] ([place]) Neutrophil pct 52.1 % [facility] ([place]) Comment: Interpretive Data Percent cell count reference ranges are not reported, since discordance with absolute values may lead to misinterpretation of CBC data. Current Interpretive Data was last revised on 2017. Imm gran pct 0.2 % [facility] ([place]) Comment: Interpretive Data Percent cell count reference ranges are not reported, since discordance with absolute values may lead to misinterpretation of CBC data. Current Interpretive Data was last revised on 2017. Lymphocyte pct 34.3 % [facility] ([place]) Comment: Interpretive Data Percent cell count reference ranges are not reported, since discordance with absolute values may lead to misinterpretation of CBC data. Current Interpretive Data was last revised on 2017. Monocyte pct 9.1 % [facility] ([place]) Comment: Interpretive Data Percent cell count reference ranges are not reported, since discordance with absolute values may lead to misinterpretation of CBC data. Current Interpretive Data was last revised on 2017. Eosinophil pct 3.8 % [facility] ([place]) Comment: Interpretive Data Percent cell count reference ranges are not reported, since discordance with absolute values may lead to misinterpretation of CBC data. Current Interpretive Data was last revised on 2017. Basophil pct 0.5 % [facility] ([place]) Comment: Interpretive Data Percent cell count reference ranges are not reported, since discordance with absolute values may lead to misinterpretation of CBC data. Current Interpretive Data was last revised on 2017. Blood 10/04/2024 4:03 AM CDT 10/04/2024 4:19 AM CDT us Karen Bazan MD LAB BLOOD ORDERABLES Fi nal Result [facility] ([place]) 1 [facility] [employer] [address] * (ABNORMAL) CBC with auto differential (10/04/2024 4:03 AM CDT) WBC 6.3 3.8 - 9.9 K/cumm Hgb 12.6(L) 13.0 - 17.5 g/dL [facility] ([place]) Hct 37.5(L) 38.9 - 50.3 % [facility] ([place]) Plt 185 150 - 400 K/cumm [facility] ([place]) MPV 9.1 9.1 - 12.3 fL [facility] ([place]) RBC 3.82(L) 4.30 - 5.80 M/cumm [facility] ([place]) MCV 98.2(H) 81.3 - 96.4 fL [facility] ([place]) MCH 33.0 27.1 - 33.3 pg [facility] ([place]) MCHC 33.6 32.3 - 35.7 g/dL [facility] ([place]) RDW CV 12.8 11.1 - 14.9 % [facility] ([place]) RDW SD 46.0 35.7 - 48.1 fL [facility] ([place]) NRBC abs 0.00 0.00 - 0.01 K/cumm [facility] ([place]) Blood 10/04/2024 4:03 AM CDT 10/04/2024 4:19 AM CDT us Karen Bazan MD LAB BLOOD ORDERABLES Fi nal Result JULIA HERNANDEZ ([place]) 1 [facility] [place] [address] * (ABNORMAL) aPTT (10/04/2024 4:03 AM CDT) aPTT 89(H) 28 - 38 sec [facility] ([place]) Comment: Interpretive Data Heparin therapeutic range: 66.0 - 100.0 seconds. Range based on correlation with therapeutic heparin activity range of 0.3 - 0.7 Units/mL. Current interpretive data was last revised on 2023. Blood 10/04/2024 4:03 AM CDT 10/04/2024 4:19 AM CDT Syeda Hunt MD LAB BLOOD ORDERABLES Final Resu lt Performing Organization Address [facility] Co de Phone Number JULIA HERNANDEZ ([place]) 1 [facility] [place] [address] * Magnesium (10/04/2024 4:03 AM CDT) Magnesium 2.1 1.4 - 2.5 mg/dL Blood 10/04/2024 4:03 AM CDT 10/04/2024 4:19 AM CDT Karen Bazan MD LAB BLOOD ORDERABLES Fi nal Result Performing Organization Address [facility] de Phone Number JULIA HERNANDEZ ([place]) [address] [facility] [place] [address] * Hemoglobin A1c (10/04/2024 4:03 AM CDT) Hgb A1C 5.5 4.0 - 5.6 % Estimated Average Glucose 111 mg/dL JULIA HERNANDEZ ([place]) Comment: The ADA recommends reporting an estimated Average Glucose (eAG) with all Hemoglobin A1c results using the equation derived from a study of 507 normal and diabetic adults. Minority populations were underrepresented and children were not included. (Diabetes Care 31:5132-5142, 2008). The eAG is not equivalent to a fasting glucose. Blood 10/04/2024 4:03 AM CDT 10/04/2024 4:19 AM CDT Karen Bazan MD LAB BLOOD ORDERABLES Fi nal Result Performing Organization Address [facility] de Phone Number JULIA HERNANDEZ ([place]) [address] [facility] [place] [address] * Lipid panel (10/04/2024 4:03 AM CDT) [facility] Signature Cholesterol 126 30 - 199 mg/dL Comment: Interpretive Data Ages < or = 19 years Acceptable: <170 mg/dL Borderline high: 170-199 mg/dL High: >or= 200 mg/dL Ages > or = 20 years Desirable: <200 mg/dL Borderline high: 200-239 mg/dL High: >or= 240 mg/dL Literature References: 1. Expert Panel on Integrated Guidelines for Cardiovascular Health and Risk Reduction in Children and Adolescents. Pediatrics 2011;128:S213 2. NCEP Expert Panel. Circulation 2004;110:227 Current Interpretive Data was last revised on 2018. Triglycerides 65 <=149 mg/dL JULIA HERNANDEZ ([place]) Comment: Interpretive Data Ages < or = 9 years Acceptable: <75 mg/dL Borderline high: 75-99 mg/dL High: >or= 100 mg/dL Ages 10 to 20 years Acceptable: <90 mg/dL Borderline high: 90-129 mg/dL High: >or= 130 mg/dL Ages > or = 20 years Desirable: <150 mg/dL Borderline high: 150-199 mg/dL High: 200-499 mg/dL Very high: >or= 499 mg/dL Literature References: 1. Expert Panel on Integrated Guidelines for Cardiovascular Health and Risk Reduction in Children and Adolescents. Pediatrics 2011;128:S213 2. NCEP Expert Panel. Circulation 2004;110:227 Current Interpretive Data was last revised on 2018. HDL 44 >=40 mg/dL JULIA Polanco ([place]) Comment: Interpretive Data Ages < or = 19 years Acceptable: >45 mg/dL Borderline low: 40-45 mg/dL Low: <40 mg/dL Ages > or = 20 years Desirable: >or= 60 mg/dL Low: <40 mg/dL Literature References: 1. Expert Panel on Integrated Guidelines for Cardiovascular Health and Risk Reduction in Children and Adolescents. Pediatrics 2011;128:S213 2. NCEP Expert Panel. Circulation 2004;110:227 Current Interpretive Data was last revised on 2018. LDL, calculated 68 <=129 mg/dL JULIA HERNANDEZ ([place]) Comment: Interpretive Data Ages < or = 19 years Acceptable: <110 mg/dL Borderline high: 110-129 mg/dL High: >or= 130 mg/dL Ages > or = 20 years Optimal: <100 mg/dL Near optimal: 100-129 mg/dL Borderline high: 130-159 mg/dL High: >160 mg/dL Calculated using the Clifton LDL-C estimating equation. This equation was implemented on 2024. Prior to this date LDL-C was estimated using the Friedewald equation. Literature References: 1. Expert Panel on Integrated Guidelines for Cardiovascular Health and Risk Reduction in Children and Adolescents. Pediatrics 2011;128:S213 2. NCEP Expert Panel. Circulation 2004;110:227 3. Clifton M et al. YOLANDA Cardiol. 2020 November 05;5(5):540-548. doi: 10.1001/jamacardio.2020.0013 Current Interpretive Data was last revised on 2024. Non-HDL Cholesterol 82 mg/dL JULIA HERNANDEZ ([place]) Comment: Interpretive Data Ages < or = 19 years Acceptable: <120 mg/dL Borderline high: 120-144 mg/dL High: >145 mg/dL Ages > or = 20 years When triglycerides are >200 mg/dL, Non-HDL cholesterol is a secondary target of therapy with treatment goals that are 30 mg/dL greater than the LDL cholesterol target. Literature References: 1. Expert Panel on Integrated Guidelines for Cardiovascular Health and Risk Reduction in Children and Adolescents. Pediatrics 2011;128:S213 2. NCEP Expert Panel. Circulation 2004;110:227 Current Interpretive Data was last revised on 2018. Chol/HDL ratio 3 JUAN ANTONIO HERNANDEZ ([place]) Blood 10/04/2024 4:03 AM CDT 10/04/2024 4:19 AM CDT us Karen Bazan MD LAB BLOOD ORDERABLES Fi nal Result JULIA HERNANDEZ ([place]) 1 [facility] [place] [address] * (ABNORMAL) Comprehensive metabolic panel (10/04/2024 4:03 AM CDT) Sodium 137 135 - 145 mmol/L Potassium, pl 3.7 3.3 - 4.9 mmol/L [facility] ([place]) Chloride 105 97 - 110 mmol/L [facility] ([place]) CO2 24 22 - 32 mmol/L [facility] ([place]) Anion gap 8 2 - 15 mmol/L [facility] ([place]) BUN 14 6 - 25 mg/dL [facility] ([place]) Creatinine 0.91 0.80 - 1.30 mg/dL [facility] ([place]) Glucose 101 70 - 199 mg/dL [facility] ([place]) Comment: Interpretive Data Fasting glucose >/= 126 mg/dl is diagnostic for diabetes. Fasting is defined as no caloric intake for at least 8 hours. Fasting glucose between 100 mg/dl to 125 mg/dl is diagnostic of prediabetes. In a patient with classic symptoms of hyperglycemia or hyperglycemic crisis, a random glucose >/= 200 mg/dl is diagnostic for diabetes. In the absence of unequivocal hyperglycemia, results should be confirmed by repeat testing. The classification and Diagnosis of Diabetes Diabetes Care 2021; 46: S19-S40. Current interpretive data was last revised 2022. Calcium 8.4(L) 8.5 - 10.3 mg/dL [facility] ([place]) Bilirubin, total 0.4 0.1 - 1.2 mg/dL [facility] ([place]) Protein, pl 5.8(L) 6.5 - 8.5 g/dL [facility] ([place]) Albumin 3.8 3.5 - 5.0 g/dL [facility] ([place]) Alk phos 36(L) 40 - 130 Units/L [facility] ([place]) ALT 24 7 - 55 Units/L [facility] ([place]) AST 23 10 - 50 Units/L [facility] ([place]) Blood 10/04/2024 4:03 AM CDT 10/04/2024 4:19 AM CDT us Karen Bazan MD LAB BLOOD ORDERABLES Fi nal Result [facility] ([place]) 1 [facility] [place] [address] * (ABNORMAL) aPTT (10/03/2024 7:29 PM CDT) aPTT 45(H) 28 - 38 sec JULIA HERNANDEZ ([place]) Comment: Interpretive Data Heparin therapeutic range: 66.0 - 100.0 seconds. Range based on correlation with therapeutic heparin activity range of 0.3 - 0.7 Units/mL. Current interpretive data was last revised on 2023. Blood 10/03/2024 7:29 PM CDT 10/03/2024 7:43 PM CDT Lacy العراقي MD LAB BLOOD ORDERABLES Final Result Performing Organization Address [facility]/ZIP Co de Phone Number JULIA HERNANDEZ ([place]) 1 [facility] [place] [address] * (ABNORMAL) Troponin T high-sensitivity 6-hour (10/03/2024 3:47 PM CDT) Trop T hs 46(H) <=22 ng/L Comment: Interpretive Data For further hscTnT resources including the diagnostic algorithm and an aid in interpretation, copy and paste this link: [email or web address].testcatalog.org/show/[email or web address] Current Interpretive Data last revised 2020. Trop T hs delta -1 ng/L [facility] ([place]) Trop T hs interp Insignificant [facility] ([place]) Blood 10/03/2024 3:47 PM CDT 10/03/2024 3:50 PM CDT Lacy العراقي MD LAB BLOOD ORDERABLES Final Result JULIA HERNANDEZ ([place]) 1 [facility] [place] [address] * (ABNORMAL) Troponin T high-sensitivity 4-hour (10/03/2024 2:09 PM CDT) Trop T hs 45(H) <=22 ng/L Comment: Interpretive Data For further hscTnT resources including the diagnostic algorithm and an aid in interpretation, copy and paste this link: [email or web address].testcatalog.org/show/[email or web address] Current Interpretive Data last revised 2020. Trop T hs delta -2 ng/L [facility] ([place]) Trop T hs interp Insignificant [facility] ([place]) Blood 10/03/2024 2:09 PM CDT 10/03/2024 2:12 PM CDT us Lacy العراقي MD LAB BLOOD ORDERABLES Final Result [facility] ([place]) 1 [facility] [place] [address] * CT Chest PE (CTA) W Contrast (10/03/2024 1:25 PM CDT) Anatomical Region Laterality Modality Body N/A Computed Tomogra phy 10/03/2024 2:12 PM CDT Narrative 10/03/2024 2:24 PM CDT EXAM DESCRIPTION: CT CHEST PE (CTA) W CONTRAST REASON FOR STUDY: chest pain Patient to ED via EMS from work with complaint of CP. States it started approx 1 hour prior to arrival. States it was full upper body numbness that radiated up the front of his neck and to both shoulders. States it also went down his left arm. States pain was like a corkscrew was in his chest. L side. Reports he was flushed. Previously he wore a heart monitor for a while due to having black out episodes but did not have any findings. Does not take any medications or have any diagnosis outpatient per patient. 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 TECHNIQUE: CT angiogram of the chest performed with intravenous contrast using helical scanning technique with dynamic intravenous contrast injection. Reconstructed coronal and sagittal MPR images reviewed. All images stored on PACS. 3D MIP images rendered on scanning unit and reviewed at time of interpretation. Automated exposure control was used as a dose optimization technique for this examination. CONTRAST TYPE/DOSE: 75mL of IOVERSOL 350 MG IODINE/ML INTRAVENOUS SYRINGE injected via intravenous COMPARISON: None FINDINGS: VASCULATURE: No identified pulmonary emboli. No thoracic aortic dissection or aneurysm. LUNGS: There is bibasilar subsegmental atelectasis. No definite findings of pneumonia. There is a 5 mm solid nodule in the right middle lobe on image 59. PLEURA: No effusion. No pneumothorax. MEDIASTINUM/JUNIOR: No identified masses or abnormal nodes. HEART: Heart size is normal with no pericardial effusion. Multivessel coronary artery calcifications are present. AXILLA: No adenopathy. CHEST WALL: No masses. No subcutaneous air. HARDWARE/LINES/TUBES: None. UPPER ABDOMEN: No significant abnormality. MUSCULOSKELETAL: No significant abnormality. OTHER: No significant abnormality. IMPRESSION: 1. No evidence of pulmonary embolism. Bibasilar subsegmental atelectasis. No definite findings of pneumonia. 2. 5 mm solid nodule in the right middle lobe. 3. Multivessel coronary artery calcifications. Recommend cardiac evaluation. Recent guidelines by the Fleischner Society (Radiology 653583,2017) divides patient into low vs. high risk (for example, patients who smoke are considered high risk) and provides followup recommendations as follows: SOLITARY PULMONARY NODULE: Patients considered LOW RISK for lung cancer and a nodule less than 6 mm in diameter require no follow-up. In patients at a HIGHER RISK optional follow-up is in 1 year. MULTIPLE PULMONARY NODULES: Patients considered LOW RISK for lung cancer and multiple nodules less than 6 mm in diameter require no follow-up. In patients at a HIGHER RISK optional follow-up is in 1 year. Note: These recommendations do not apply to lung cancer screening, patients with immunosuppression, or patients with known primary cancer. http://pubs.rsna.org/doi/pdf/10.1148/radiol.9465035171 THIS IS AN ELECTRONICALLY VERIFIED FINAL REPORT 10/03/2024 2:24 PM - Electronically signed by Lee Whitaker M.D. AM: AM Report ID: [id number] Reading Location: [place] [address] Procedure Note Lee Whitaker MD - 10/03/2024 EXAM DESCRIPTION: CT CHEST PE (CTA) W CONTRAST REASON FOR STUDY: chest pain Patient to ED via EMS from work with complaint of CP. States it startedapprox 1 hour prior to arrival. States it was full upper body numbness that radiated up the front of his neck and to both shoulders. States it alsowent down his left arm. States pain was like a corkscrew was in his chest.L side. Reports he was flushed. Previously he wore a heart monitor fora while due to having black out episodes but did not have any findings. 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 TECHNIQUE: CT angiogram of the chest performed with intravenous contrastusing helical scanning technique with dynamic intravenous contrast injection. Reconstructed coronal and sagittal MPR images reviewed. All images storedon PACS. 3D MIP images rendered on scanning unit and reviewed at time of interpretation. Automated exposure control was used as a doseoptimization technique for this examination. CONTRAST TYPE/DOSE: 75mL of IOVERSOL 350 MG IODINE/ML INTRAVENOUSSYRINGE injected via intravenous COMPARISON: None FINDINGS: VASCULATURE: No identified pulmonary emboli. No thoracic aorticdissection or aneurysm. LUNGS: There is bibasilar subsegmental atelectasis. No definitefindings of pneumonia. There is a 5 mm solid nodule in the right middle lobe on image59. PLEURA: No effusion. No pneumothorax. MEDIASTINUM/JUNIOR: No identified masses or abnormal nodes. HEART: Heart size is normal with no pericardial effusion. Multivessel coronary artery calcifications are present. AXILLA: No adenopathy. CHEST WALL: No masses. No subcutaneous air. HARDWARE/LINES/TUBES: None. UPPER ABDOMEN: No significant abnormality. MUSCULOSKELETAL: No significant abnormality. OTHER: No significant abnormality. IMPRESSION: 1. No evidence of pulmonary embolism. Bibasilar subsegmentalatelectasis. No definite findings of pneumonia. 2. 5 mm solid nodule in the right middle lobe. 3. Multivessel coronary artery calcifications. Recommend cardiacevaluation. Recent guidelines by the Fleischner Society (Radiology 176064,2017)divides patient into low vs. high risk (for example, patients who smoke areconsidered high risk) and provides followup recommendations as follows: SOLITARY PULMONARY NODULE: Patients considered LOW RISK for lung cancerand a nodule less than 6 mm in diameter require no follow-up. In patients at a HIGHER RISK optional follow-up is in 1 year. MULTIPLE PULMONARY NODULES: Patients considered LOW RISK for lung cancerand multiple nodules less than 6 mm in diameter require no follow-up. Inpatients at a HIGHER RISK optional follow-up is in 1 year. Note: These recommendations do not apply to lung cancer screening,patients with immunosuppression, or patients with known primary cancer. http://pubs.rsna.org/doi/pdf/10.1148/radiol.5586733705 THIS IS AN ELECTRONICALLY VERIFIED FINAL REPORT 10/03/2024 2:24 PM - Electronically signed by Lee Whitaker M.D. AM: AM Report ID: [id number] Reading Location: [place] [address] Lacy العراقي MD IMG CT PROCEDURES Final Re sult * (ABNORMAL) Troponin T high-sensitivity 2-hour (10/03/2024 12:41 PM CDT) Trop T hs 41(H) <=22 ng/L Comment: Interpretive Data For further hscTnT resources including the diagnostic algorithm and an aid in interpretation, copy and paste this link: https://nrl.testcatalog.org/show/hsTrop Current Interpretive Data last revised 2020. Trop T hs delta -6 ng/L [facility] ([place]) Trop T hs interp Equivocal [facility] ([place]) Blood 10/03/2024 12:4 1 PM CDT 10/03/2024 12:45 PM CDT Lacy العراقي MD LAB BLOOD ORDERABLES Final Result DILMAGIANNA HERNANDEZ ([place]) 1 [facility] Department of [facility] [place], [place] [id number] * (ABNORMAL) CBC without differential (10/03/2024 11:54 AM CDT) WBC 5.8 3.8 - 9.9 K/cumm Hgb 12.9(L) 13.0 - 17.5 g/dL [facility] ([place]) Hct 37.2(L) 38.9 - 50.3 % [facility] ([place]) Plt 229 150 - 400 K/cumm [facility] ([place]) MPV 10.5 9.1 - 12.3 fL [facility] ([place]) RBC 3.86(L) 4.30 - 5.80 M/cumm [facility] ([place]) MCV 96.4 81.3 - 96.4 fL [facility] ([place]) MCH 33.4(H) 27.1 - 33.3 pg [facility] ([place]) MCHC 34.7 32.3 - 35.7 g/dL [facility] ([place]) RDW CV 12.8 11.1 - 14.9 % [facility] ([place]) RDW SD 45.2 35.7 - 48.1 fL [facility] ([place]) NRBC abs 0.00 0.00 - 0.01 K/cumm JULIA HERNANDEZ ([place]) Blood 10/03/2024 11:5 4 AM CDT 10/03/2024 11:57 AM CDT Narrative JULIA HERNANDEZ ([place]) - 10/03/2024 12:01 PM CDT Baseline prior to heparin initiation Lacy العراقي MD LAB BLOOD ORDERABLES Final Result JULIA HERNANDEZ ([place]) 1 [facility] [place] [address] * Ethanol (10/03/2024 11:54 AM CDT) Ethanol <10 <=10 mg/dL Comment: Interpretive Data Legal limit of intoxication > or = 80 mg/dL Levels > or = 400 mg/dL are potentially TOXIC. Current interpretive data was last revised on 2018. Blood 10/03/2024 11:5 4 AM CDT 10/03/2024 11:57 AM CDT Lacy العراقي MD LAB BLOOD ORDERABLES Final Result [facility] [place] 1 [facility] [place] [address] * XR Chest PA Lateral 2 Views (10/03/2024 10:17 AM CDT) Anatomical Region Laterality Modality Body, Chest N/A Computed Radiogr aphy 10/03/2024 11:1 9 AM CDT Narrative 10/03/2024 11:24 AM CDT EXAM DESCRIPTION: XR CHEST PA LATERAL 2 VIEWS REASON FOR STUDY: chest pain complaint of CP. States it started approx 1 hour prior to arrival. States it was full upper body numbness that radiated up the front of his neck and to both shoulders. States it also went down his left arm. States pain was like a corkscrew was in his chest. L side. Reports he was flushed. No chest surgeries Smoker TECHNIQUE: 2 radiographic view(s) of the chest. COMPARISON: None available FINDINGS: LUNGS: Mild bibasilar atelectasis. No focal pulmonary parenchymal consolidation, pleural effusion, or pneumothorax. HEART/MEDIASTINUM: Cardiac silhouette normal in size. Mediastinal and hilar contours appear normal. LINES/TUBES: None. BONES: No acute osseous abnormality. IMPRESSION: No acute cardiopulmonary abnormality. THIS IS AN ELECTRONICALLY VERIFIED FINAL REPORT 10/03/2024 11:24 AM - Electronically signed by Marcia Linder M.D. AT: AT Report ID: [id number] Reading Location: [id number] Procedure Note Marcia Linder MD - 10/03/2024 EXAM DESCRIPTION: XR CHEST PA LATERAL 2 VIEWS REASON FOR STUDY: chest pain complaint of CP. States it started approx 1 hour prior to arrival. Statesit was full upper body numbness that radiated up the front of his neck andto both shoulders. States it also went down his left arm. States pain waslike a corkscrew was in his chest. L side. Reports he was flushed. No chest surgeries Smoker TECHNIQUE: 2 radiographic view(s) of the chest. COMPARISON: None available FINDINGS: LUNGS: Mild bibasilar atelectasis. No focal pulmonary parenchymal consolidation, pleural effusion, or pneumothorax. HEART/MEDIASTINUM: Cardiac silhouette normal in size. Mediastinal andhilar contours appear normal. LINES/TUBES: None. BONES: No acute osseous abnormality. IMPRESSION: No acute cardiopulmonary abnormality. THIS IS AN ELECTRONICALLY VERIFIED FINAL REPORT 10/03/2024 11:24 AM - Electronically signed by Marcia Linder M.D. AT: AT Report ID: [id number] Reading Location: [id number] [place] Lacy العراقي MD IMG XR PROCEDURES Final Re sult * (ABNORMAL) Troponin T high-sensitivity series (baseline, 2hr, 4hr, 6hr) (10/03/2024 10:01 AM CDT) Trop T hs 47(H) <=22 ng/L Comment: Interpretive Data For further hscTnT resources including the diagnostic algorithm and an aid in interpretation, copy and paste this link: [email or web address].testcatalog.org/show/hsTrop Current Interpretive Data last revised 2020. Blood 10/03/2024 10:0 1 AM CDT 10/03/2024 10:03 AM CDT us Lacy العراقي MD LAB BLOOD ORDERABLES Final Result [facility] [place]) 3 [facility] [place] [address] * eGFR (10/03/2024 10:01 AM CDT) eGFR >90 >=60 mL/min/1. 73 m2 Comment: Interpretive Data Reference Interval Normal >/= 90 mL/min/1.73m2 Mildly decreased* 60 - 89 mL/min/1.73m2 Mildly to moderately decreased 45 - 59 mL/min/1.73m2 Moderately to severely decreased 30 - 44 mL/min/1.73m2 Severely decreased 15 - 29 mL/min/1.73m2 Kidney Failure < 15 mL/min/1.73m2 *Relative to young adult level Estimated glomerular filtration rate is determined by the 2020 CKD-EPI equation recommended by the National [employer] (A Unifying Approach to GFR Estimation: Recommendations of the NKF-ASK Task Force on Reassessing the Inclusion of Race in Diagnosing Kidney Disease, JASN 2020). The CKD-EPI equation should not be used for patients with unstable renal function and has not been validated in children and those over 70. Current interpretive data was last reviewed 2021. Blood 10/03/2024 10:0 1 AM CDT 10/03/2024 10:03 AM CDT us Lacy العراقي MD LAB BLOOD ORDERABLES Final Result [facility] ([place]) [facility] [place] [address] * Differential, auto (10/03/2024 10:01 AM CDT) Neutrophil abs 2.9 1.5 - 6.5 K/cumm Imm gran abs 0.0 0.0 - 0.1 K/cumm [facility] ([place]) Lymphocyte abs 2.1 0.8 - 3.3 K/cumm [facility] ([place]) Monocyte abs 0.5 0.2 - 0.8 K/cumm [facility] ([place]) Eosinophil abs 0.1 0.0 - 0.5 K/cumm [facility] ([place]) Basophil abs 0.0 0.0 - 0.1 K/cumm [facility] ([place]) Neutrophil pct 50.6 % [facility] ([place]) Comment: Interpretive Data Percent cell count reference ranges are not reported, since discordance with absolute values may lead to misinterpretation of CBC data. Current Interpretive Data was last revised on 2017. Imm gran pct 0.2 % [facility] ([place]) Comment: Interpretive Data Percent cell count reference ranges are not reported, since discordance with absolute values may lead to misinterpretation of CBC data. Current Interpretive Data was last revised on 2017. Lymphocyte pct 37.1 % [facility] ([place]) Comment: Interpretive Data Percent cell count reference ranges are not reported, since discordance with absolute values may lead to misinterpretation of CBC data. Current Interpretive Data was last revised on 2017. Monocyte pct 9.6 % [facility] ([place]) Comment: Interpretive Data Percent cell count reference ranges are not reported, since discordance with absolute values may lead to misinterpretation of CBC data. Current Interpretive Data was last revised on 2017. Eosinophil pct 2.1 % [facility] ([place]) Comment: Interpretive Data Percent cell count reference ranges are not reported, since discordance with absolute values may lead to misinterpretation of CBC data. Current Interpretive Data was last revised on 2017. Basophil pct 0.4 % [facility] ([place]) Comment: Interpretive Data Percent cell count reference ranges are not reported, since discordance with absolute values may lead to misinterpretation of CBC data. Current Interpretive Data was last revised on 2017. Blood 10/03/2024 10:0 1 AM CDT 10/03/2024 10:03 AM CDT us Lacy العراقي MD LAB BLOOD ORDERABLES Final Result [facility] ([place]) [facility] [place] [address] * (ABNORMAL) CBC with auto differential (10/03/2024 10:01 AM CDT) WBC 5.6 3.8 - 9.9 K/cumm Hgb 13.1 13.0 - 17.5 g/dL [facility] ([place]) Hct 38.3(L) 38.9 - 50.3 % [facility] ([place]) Plt 191 150 - 400 K/cumm [facility] ([place]) MPV 9.3 9.1 - 12.3 fL [facility] ([place]) RBC 3.99(L) 4.30 - 5.80 M/cumm [facility] ([place]) MCV 96.0 81.3 - 96.4 fL [facility] ([place]) MCH 32.8 27.1 - 33.3 pg [facility] ([place]) MCHC 34.2 32.3 - 35.7 g/dL [facility] ([place]) RDW CV 12.7 11.1 - 14.9 % [facility] ([place]) RDW SD 45.0 35.7 - 48.1 fL [facility] ([place]) NRBC abs 0.00 0.00 - 0.01 K/cumm [facility] ([place]) Blood Venous blood specimen / Unknown 10/03/2024 10:01 AM CDT 10/03/2024 10:03 AM CDT us Lacy العراقي MD LAB BLOOD ORDERABLES Final Result Performing Organization Address City/[facility]/ZIP Co de Phone Number [facility] ([place]) [address] [facility] [place] [address] * aPTT (10/03/2024 10:01 AM CDT) aPTT 33 28 - 38 sec [facility] ([place]) Comment: Interpretive Data Heparin therapeutic range: 66.0 - 100.0 seconds. Range based on correlation with therapeutic heparin activity range of 0.3 - 0.7 Units/mL. Current interpretive data was last revised on 2023. Blood 10/03/2024 10:0 1 AM CDT 10/03/2024 11:42 AM CDT Narrative [facility] ([place]) - 10/03/2024 11:49 AM CDT Baseline prior to heparin initiation us Lacy العراقي MD LAB BLOOD ORDERABLES Final Result [facility] ([place]) [address] [facility] [place] [address] * Protime-INR (10/03/2024 10:01 AM CDT) PT 11.9 9.7 - 13.0 sec [facility] ([place]) INR 1.10 0.90 - 1.20 [facility] ([place]) Comment: Interpretive data Oral anticoagulant therapeutic ranges: Venous thromboembolism prophylaxis or treatment: 2.0-3.0 CARDIOLOGY Standard range: 2.0-3.0 High-intensity range: 2.5-3.5 Refer to indication-specific guidelines for appropriate target ranges for prosthetic heart valve replacement. Current interpretive data was last revised on 2019. Blood 10/03/2024 10:0 1 AM CDT 10/03/2024 11:42 AM CDT Narrative [facility] ([place]) - 10/03/2024 11:49 AM CDT Baseline prior to heparin initiation us Lacy العراقي MD LAB BLOOD ORDERABLES Final Result [facility] ([place]) [facility] Department [place] [address] * (ABNORMAL) Comprehensive metabolic panel (10/03/2024 10:01 AM CDT) Pathologist [facility] Sodium 137 135 - 145 mmol/L Potassium, pl 3.8 3.3 - 4.9 mmol/L [facility] ([place]) Chloride 105 97 - 110 mmol/L [facility] ([place]) CO2 20(L) 22 - 32 mmol/L [facility] ([place]) Anion gap 13 2 - 15 mmol/L [facility] ([place]) BUN 12 6 - 25 mg/dL [facility] ([place]) Creatinine 0.74(L) 0.80 - 1.30 mg/dL [facility] ([place]) Glucose 99 70 - 199 mg/dL [facility] ([place]) Comment: Interpretive Data Fasting glucose >/= 126 mg/dl is diagnostic for diabetes. Fasting is defined as no caloric intake for at least 8 hours. Fasting glucose between 100 mg/dl to 125 mg/dl is diagnostic of prediabetes. In a patient with classic symptoms of hyperglycemia or hyperglycemic crisis, a random glucose >/= 200 mg/dl is diagnostic for diabetes. In the absence of unequivocal hyperglycemia, results should be confirmed by repeat testing. The classification and Diagnosis of Diabetes Diabetes Care 2021; 46: S19-S40. Current interpretive data was last revised 2022. Calcium 9.0 8.5 - 10.3 mg/dL [facility] ([place]) Bilirubin, total 0.5 0.1 - 1.2 mg/dL [facility] ([place]) Protein, pl 6.5 6.5 - 8.5 g/dL [facility] ([place]) Albumin 4.2 3.5 - 5.0 g/dL [facility] ([place]) Alk phos 41 40 - 130 Units/L [facility] ([place]) ALT 27 7 - 55 Units/L [facility] ([place]) AST 32 10 - 50 Units/L [facility] ([place]) Blood 10/03/2024 10:0 1 AM CDT 10/03/2024 10:03 AM CDT us Lacy العراقي MD LAB BLOOD ORDERABLES Final Result Performing Organization Address City[facility] Co de Phone Number [facility] ([place]) [facility] [place] [address] * ECG 12 lead (10/03/2024 9:51 AM CDT) 10/03/2024 9:51 AM CDT Narrative [facility] - 10/03/2024 1:54 PM CDT Vent Rate: 62 bpm RR Interval: 959 msec [place] Interval: 157 msec QRS Duration: 87 msec QT Interval: 402 msec QTC Interval: 407 msec P-R-T [place]: 28 - 10 - 29 degrees IMPRESSION: SINUS RHYTHM LOW QRS VOLTAGE IN PRECORDIAL LEADS [QRS DEFLECTION < 1.0 mV IN CHEST LEADS] BORDERLINE ECG Electronically Signed By: Jonathan Weathers MD, [facility] us Lacy العراقي MD ECG ORDERABLES Final Resu lt Performing Organization Address City[facility]/ZIP Co de Phone Number [facility] [employer] [facility] from Last 3 Months Insurance [employer] [place] [employer] [place] [employer] [place] Member Subscriber Plan / Payer (Ef fective 2008-Present) Name:Malcom Nance Relation to Subscriber:Self Name:Malcom Nance Payer ID:[id number] (NAIC) Type:BC OTHER Address: [address] [place] [id number] Advance Directives For more information, please contact: [phone] * Full Code (Latest Code Status on File) Date Activated Date Inactivated Comments 10/03/2024 3:04 PM 10/05/2024 7:12 PM Care Teams Lav Crewman Relationship Specialty Start Date End Date Vashti Dixon MD [address] [place] [id number] PCP - General Internal Medicine 08/10/21
--- OUTSIDE RECORDS SUMMARY | 2024-12-11 15:04 | XMS_ITS | Continuity of Care Document ---
Author Name [facility] Organization [facility] Care Team Providers Care Oncology Physician Name Role Phone [facility] Unavailable Unavailable Problems Combined list of problems from Department of [facility] and [facility] facilities. It does not include entries that were removed or entered in error. 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 Location Location Details Encounter Type Encounter Number Reason For Visit Attending Provider ADM Date DC Date Status Disposition Source [facility] Outpatient Encounter [id number] 08/14 [facility] Procedures Combined list of: 1) Procedures from Department of [facility] facilities going back up to thelast 18 months, not all [place] non-surgical procedures are included; 2) All procedures from the [facility] facilities. Procedure Procedure Type Code Date Perfomer Comments Sourc e THERAPEUTIC PROCEDURE, 1 OR MORE AREAS, EACH 15 MINUTES; THERAPEUTIC EXERCISES TO DEVELOP STRENGTH AND ENDURANCE, RANGE OF MOTION AND FLEXIBILITY 02/05/2000 [facility] Social History Combined list of available smoking, tobacco, and other social history from Department [facility]. Social History Type Response Date Comment Sourc e Tobacco smoking status NHIS QUIT TOBACCO IN THE LAST 12 MONTHS 08/08/2006 [facility] History of tobacco use CURRENT TOBACCO USER 04/17/2006 [facility] History of tobacco use CURRENT TOBACCO USER 10/19/2002 [facility] This section is an empty social history section. DoD
--- OUTSIDE RECORDS SUMMARY | 2024-12-11 15:04 | XMS_ITS | Clinical Summary ---
Author Organization [facility] Address [address] [place] [address] Care Team Providers Care Missile Facilities Repairer Name Role Phone Yovana García MD Primary Care Provider [phone] Source Comments [facility],non-owned Affiliates and Associated Physician Practices is amultiple site organization consisting of ambulatory clinics and hospital sitesin [place], [place], [place] and [place]. This disclosure is being madepursuant to the Care Everywhere program and may not contain all information available regarding this patient. Last updated 18.[facility] Allergies No known active allergies Medications * Be aware that medications may not be up to date on this document. Alwaysverify current medications with the patient. 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 Gender Identity Not on file Sexual Orientation Not on file Last Filed Vital Signs Vital Sign Reading Time Taken Comments Blood Pressure 148/86 12/25/2017 4:08 PM CDT Pulse 77 12/25/2017 4:08 PM CDT Temperature 36.7 C (98.1 F) 12/25/2017 4:08 PM CDT Respiratory Rate 16 12/25/2017 4:08 PM CDT Oxygen Saturation 97% 12/25/2017 4:08 PM CDT Inhaled Oxygen Concentration - - Weight 104.3 kg (230 lb) 12/25/2017 4:08 PM CDT Height 188 cm (6' 2) 12/25/2017 4:08 PM CDT Body Mass Index 29.53 12/25/2017 4:08 PM CDT Plan of Treatment Health Maintenance Due Date Last Done Comments COLOGUARD (AGES 45-75) - COL ON CA SCREENING 1979 COLON MONITORING 1979 COLONOSCOPY - COLON CA SCREENING 1979 CT COLONOGRAPHY - COLON CA SCREENING 1979 Colorectal Cancer Screening 1979 FIT - COLON CA SCREENING 1979 FLEX SIG - COLON CA SCREENING 1979 LIPID TESTING 1979 HIV SCREENING 1994 HEPATITIS C SCREENING 08/29/1997 DTAP/TDAP/TD VACCINES (1 - Tdap) 1998 HEPATITIS B VACCINE (1 of 3 - 19+ 3-dose series) 1998 COVID-19 VACCINE (1 - 2023-2 5 season) 2024 DEPRESSION SCREENING 07/08/2024 INFLUENZA VACCINE (Season Ended) 2025 ZOSTER VACCINE (1 of 2) 2029 HIB VACCINE Aged Out No longer eligi ble based on patient's age to complete this topic HPV VACCINE Aged Out No longer eligi ble based on patient's age to complete this topic MENINGOCOCCAL (Group B) VACC INE SHARED DECISION-MAKING Aged Out No longer eligibl e based on patient's age to complete this topic MENINGOCOCCAL GROUPS A/C/Y/W VACCINE Aged Out No longer eligible b ased on patient's age to complete this topic PNEUMOCOCCAL VACCINE Aged Out No long er eligible based on patient's age to complete this topic Insurance ANTH Care Teams Missile Facilities Repairer Relationship Specialty Start Date End Date Yovana García MD [address] [place] [address] PCP - General Surgery 08/10/16
--- OUTSIDE RECORDS SUMMARY | 2024-12-11 15:04 | XMS_ITS | Clinical Summary ---
Author Organization [facility] Address [address] [place] [address] Care Team Providers Care Foundry Helper Name Role Phone Provider, Not On File Primary Care Provider Unav ailable Medications cetirizine (ZyrTEC) 10 MG Tablet Take 10 mg by mouth daily. 09/30/2021 Active fluticasone (FLONASE) 50 MCG/ACT Suspension INSTILL 2 SPRAYS INTO EACH NOSTRIL EVERY DAY 09/30/2021 Active traZODone (DESYREL) 50 MG TabletIndication s:Insomnia, unspecified type Take 0.5 Tablets by mouth nightly. 10 Tablet 06/05/2023 Active Active Problems No known active problems Social History Tobacco Use Types Packs/Day Years Used Date Smoking Tobacco: Never Smokeless Tobacco: Never Tobacco Cessation:Counseling Given: Not Answered Sex and Gender Information Value Date Recorded Sex Assigned at Not on file Legal Sex Male 9:28 PM CDT Gender Identity Not on file Sexual Orientation Not on file Last Filed Vital Signs Vital Sign Reading Time Taken Comments Blood Pressure 123/88 06/05/2023 8:10 AM MANAGER CAMP Pulse 88 06/05/2023 8:10 AM MANAGER CAMP Temperature 36.3 C (97.3 F) 06/05/2023 8:10 AM MANAGER CAMP Respiratory Rate 20 06/05/2023 8:10 AM MANAGER CAMP Oxygen Saturation 97% 06/05/2023 8:10 AM MANAGER CAMP Inhaled Oxygen Concentration - - Weight 102.1 kg (225 lb) 06/05/2023 8:10 AM MANAGER CAMP Height - - Body Mass Index - - Plan of Treatment Health Maintenance Due Date Last Done Comments Hepatitis C Virus (HCV) Screening 1979 TdaP Immunization 1979 Hepatitis B Immunization (1 of 3 - 19+ 3-dose series) 1998 SARS-COV-2 Immunization ( - 2023- season) 2024 Colonoscopy 2024 Colorectal Cancer Screening 2024 Influenza Immunization (Seas on Ended) 2025 Respiratory Syncytial Virus (RSV) Immunization (Adult) (1 - 1-dose 75+ series) 2054 Human Papillomavirus (HPV) Immunization Aged Out No longer eligible b ased on patient's age to complete this topic Meningococcal Immunization (ACWY) Aged Out No longer eligible based on patient's age to complete this topic Pneumococcal Immunization Combined Aged Out No longer eligible based on patient's age to complete this topic Rotavirus Immunization Aged Out No lo nger eligible based on patient's age to complete this topic [place] [address] [place] [address] Care Teams Foundry Helper Relationship Specialty Start Date End Date Provider, Not On File [place] PCP - General 06/05/23
--- OUTSIDE RECORDS SUMMARY | 2024-12-11 15:04 | XMS_ITS | Clinical Summary ---
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
--- OUTSIDE RECORDS SUMMARY | 2024-12-11 15:04 | XMS_ITS | Referral Summary ---
Author Organization [facility] Address [address] [place] [id number] Care Team Providers Care Demand Planning Manager Name Role Phone Vashti Dixon MD Primary Care Provider + [phone] Encounters Date Type Department Care Team Description 12/01/2024 Orders Only [facility] [address] [place] [address] Dayday Moore NP 11/12/2024 10:45 AM CDT Office Visit [place] [facility] at [facility] [address] [facility] [address] [place] [phone] Dayday Moore NP Chest pain due to myocardial ischemia, unspecified ischemic chest pain type (Primary Dx); Hypertension, unspecified type; Hyperlipidemia, unspecified hyperlipidemia type 10/08/2024 [facility] Post Discharge Follow up phone call [facility] [address] [place] [address] Karen Carroll 10/05/2024 1:00 PM CDT - 10/05/2024 2:05 PM CDT Surgery [facility] Cardiac Catheterization [address] [place] [address] Cuba Jade MD CORONARY ANGIOGRAPHY [address] 10/03/2024 9:46 AM CDT - 10/05/2024 3:12 PM CDT Hospital Encounter [facility] [address] [place] [address] Lacy العراقي MD Sinha, Chandni, MD Nikolic, Jelena, MD Chest pain due to myocardial ischemia, unspecified ischemic chest pain type (Primary Dx) Discharge Disposition: Discharge to home or self care 10/03/2024 9:28 AM CDT - 10/03/2024 11:59 PM CDT Hospital Encounter [facility] Emergency, Room R Discharge Disposition: Discharge to home or self care from Last 3 Months Allergies Active Allergy Reactions Criticality Noted Date [...] by mouth daily 30 tablet 11 10/05/2024 6 Active sertraline (ZOLOFT) 50 mg tablet Take 1 tablet (50 mg total) by mouth daily 30 tablet 1 10/05/2024 Active losartan (COZAAR) 25 mg tablet Take 0.5 tablets (12.5 mg total) by mouth daily 45 tablet 3 11/12/2024 6 Active atorvastatin (LIPITOR) 10 mg tablet Take 1 tablet (10 mg total) by mouth daily Active Active Problems Problem Noted Date Diagnosed Date Chest pain 10/05/2024 Chest pain due to myocardial ischemia, unspecified ischemic chest pain type 10/03/2024 Social History Tobacco Use Types Packs/Day Years Used Date Smoking Tobacco: Every Day Cigarettes 0.2 3.3 Started: 09/05/2021 Tobacco Cessation:Ready to Q uit: Not Asked; Counseling Given: Not Answered [facility] Utilities Answer Date Recorded In the past 12 months has th e [employer], gas, oil, or water company threatened to shut off services in your home? No 10/05/2024 Social Connection and Isolat ion Panel [NHANES] Answer Date Recorded In a typical week, how many times do you talk on the phone with family, friends, or neighbors? More than three times a week 10/05/2024 How often do you get togethe r with friends or relatives? Three times a week 10/05/2024 Attends [employer] Services Not on file 10/05 Do you belong to any clubs o r organizations such as anabaptism groups, unions, fraternal or athletic groups, or [...] any time in the past [address] [place], were you homeless or living in a alf (including now)? No 10/05/2024 Personal Safety Answer Date Recorded Have you ever been in or are you currently in a harmful physical or emotional relationship or is someone making you feel afraid or unsafe? 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 Aspirin 81 mg daily us Jonathan Weathers MD CV CARDIAC CATH PROCEDURES F inal Result * TRANSTHORACIC ECHO (TTE) COMPLETE W DOPPLER/CF WO CONTRAST (10/05/2024 8:52 AM CDT) Anatomical Region Laterality Modality Ultrasound 10/05/2024 9:17 AM CDT Narrative 10/05/2024 10:48 [place] [address] Echocardiogram Report Patient Name: MALCOM NANCE D : 1980 Study Date: 10/05/2024 9:17:03 AM Gender: M Tech: Location: [id number] Ref Provider: JONATHAN WEATHERS Height(Cm): BSA: Weight(Kg): [...] Procedure Note Harry Roach MD - 10/05/[address] [address] Echocardiogram Report Patient Name: MALCOM NANCE D : 1980 Study Date: 10/05/2024 9:17:03 AM Gender: M Tech: Location: [address] Provider: JONATHAN WEATHERS Height(Cm): BSA: Weight(Kg): Quality: [...] of Race in Diagnosing Kidney Disease, JASN 202). The CKD-EPI equation should not be used for patients with unstable renal function and has not been validated in children and those over 70. Current interpretive data was last reviewed 2021. Blood 10/05/2024 5:03 AM CDT 10/05/2024 5:27 AM CDT Karen Bazan MD LAB BLOOD ORDERABLES Fi nal Result Performing Organization Address City/[facility] Co de Phone Number [facility] ([place]) 1 [facility] [email or web address] [address] * (ABNORMAL) aPTT (10/05/2024 5:03 AM CDT) Pathologist [facility] aPTT 73(H) 28 - 38 sec [facility] ([place]) Comment: Interpretive Data Heparin therapeutic range: 66.0 - 100.0 seconds. Range based on correlation with therapeutic heparin activity range of 0.3 - 0.7 Units/mL. Current interpretive data was last revised on 2023. Blood 10/05/2024 5:03 AM CDT 10/05/2024 5:27 AM CDT Syeda Hunt MD LAB BLOOD ORDERABLES Final Resu lt Performing Organization Address [facility] Co de Phone Number [facility] 1 [facility] [email or web address] [address] * Magnesium (10/05/2024 5:03 AM CDT) [facility] Magnesium 2.0 1.4 - 2.5 mg/dL Blood 10/05/2024 5:03 AM CDT 10/05/2024 5:27 AM CDT Karen Bazan MD LAB BLOOD ORDERABLES Fi nal Result Performing Organization Address [facility] Co de Phone Number [facility] ([place]) 1 [facility] [email or web address] [address] * (ABNORMAL) Comprehensive metabolic panel (10/05/2024 5:03 AM CDT) [facility] Sodium 140 135 - 145 mmol/L Potassium, pl 3.8 3.3 - 4.9 mmol/L [facility] ([place]) Chloride 106 97 - 110 mmol/L [facility] CO2 25 22 - 32 mmol/L [facility]) Anion gap 9 2 - 15 mmol/L [facility] ([place]) BUN 11 6 - 25 mg/dL [facility] ([place]) [...] MD LAB BLOOD ORDERABLES Fi nal Result [facility] ([place]) [address] [facility] [place] [address] * (ABNORMAL) aPTT (10/04/2024 9:46 AM CDT) aPTT 83(H) 28 - 38 sec [facility] ([place]) [...] BLOOD ORDERABLES Final Resu lt [facility] ([place]) [address] [facility] [place] [address] * eGFR (10/04/2024 4:03 AM CDT) eGFR >90 >=60 mL/min/1. 73 [...] BLOOD ORDERABLES Fi nal Result [facility] ([place]) [address] [facility] Department [place] [address] * Differential, auto (10/04/2024 4:03 AM CDT) [...] us Karen Bazan MD LAB BLOOD ORDERABLES [facility] Result [facility] ([place]) [address] [facility] [place] [address] * (ABNORMAL) CBC with auto differential (10/04/2024 4:03 AM CDT) WBC 6.3 3.8 - 9.9 K/cumm Hgb 12.6(L) 13.0 - 17.5 g/dL [facility] ([place]) Hct 37.5(L) 38.9 - 50.3 % [facility] ([place]) Plt 185 150 - 400 K/cumm [facility] ([place]) MPV 9.1 9.1 - 12.3 fL [facility] ([place]) RBC 3.82(L) 4.30 - 5.80 M/cumm [facility]ER [...] BLOOD ORDERABLES Fi nal Result [facility] ([place]) 1 [facility] [email or web address] [address] * (ABNORMAL) aPTT (10/04/2024 4:03 AM CDT) aPTT 89(H) 28 - 38 sec [facility] ([place]) Comment: Interpretive Data Heparin therapeutic range: 66.0 - 100.0 seconds. Range based on correlation with therapeutic heparin activity range of 0.3 - 0.7 Units/mL. Current interpretive data was last revised on 2023. Blood 10/04/2024 4:03 AM CDT 10/04/2024 4:19 AM CDT Syeda Hunt MD LAB BLOOD ORDERABLES Final Resu lt Performing Organization Address City/[facility]/ZIP Co de Phone Number [facility] ([place] 1 [facility] [email or web address] [address] * Magnesium (10/04/2024 4:03 AM CDT) Pathologist [facility] Magnesium 2.1 1.4 - 2.5 mg/dL Blood 10/04/2024 4:03 AM CDT 10/04/2024 4:19 AM CDT Karen Bazan MD LAB BLOOD ORDERABLES Fi nal Result Performing Organization Address City/[facility]/ZIP Co de Phone Number [facility] 1 [facility] [email or web address] [address] * Hemoglobin A1c (10/04/2024 4:03 AM CDT) Hgb A1C 5.5 4.0 - 5.6 % Estimated Average Glucose 111 mg/dL [facility] ([place]) Comment: The ADA recommends reporting an estimated Average Glucose (eAG) with all Hemoglobin A1c results using the equation derived from a study of 507 normal and diabetic adults. Minority populations were underrepresented and children were not included. (Diabetes Care 31:1351-0815, 2008). The eAG is not equivalent to a fasting glucose. Blood 10/04/2024 4:03 AM CDT 10/04/2024 4:19 AM CDT us Karen Bazan MD LAB BLOOD ORDERABLES Fi nal Result [facility] ([place]) [address] [facility] Department [place] [address] * Lipid panel (10/04/2024 4:03 AM CDT) Cholesterol 126 30 - 199 mg/dL Comment: [...] NCEP Expert Panel. Circulation 2004;110:227 3. Clifton Rodrigues et al. YOLANDA Cardiol. 2019November 05;5(5):540-548. doi: 10.1001/jamacardio.2020.0013 Current Interpretive Data was [...] last revised on 2018. Chol/HDL ratio 3 [facility] ([place]) Blood 10/04/2024 4:03 AM CDT 10/04/2024 4:19 AM CDT us Karen Bazan MD LAB BLOOD ORDERABLES Fi nal Result [facility] ([place]) [address] [facility] Department [place] [address] * (ABNORMAL) Comprehensive metabolic panel (10/04/2024 4:03 [...] - 1.30 mg/dL [facility] ([place]) Glucose 101 70 - 199 mg/dL [facility] [...] LAB BLOOD ORDERABLES Fi nal Result [facility] ([place]) 1 [facility] [place] [address] * (ABNORMAL) aPTT (10/03/2024 7:29 PM CDT) aPTT 45(H) 28 - 38 sec [facility] ([place]) Comment: Interpretive Data Heparin therapeutic range: 66.0 - 100.0 seconds. Range based on correlation with therapeutic heparin activity range of 0.3 - 0.7 Units/mL. Current interpretive data was last revised on 2023. Blood 10/03/2024 7:29 PM CDT 10/03/2024 7:43 PM CDT us Lacy العراقي MD LAB BLOOD ORDERABLES Final Result Performing Organization Address City/[facility]/ZIP Co de Phone Number [facility] ([place]) [address] [facility] [place] [address] * (ABNORMAL) Troponin T high-sensitivity 6-hour (10/03/2024 3:47 PM CDT) Trop T hs 46(H) <=22 ng/L Comment: Interpretive Data For further hscTnT resources including the diagnostic algorithm and an aid in interpretation, copy and paste this link: https://nrl.testcatalog.org/show/hsTrop Current Interpretive Data last revised 2020. Trop T hs delta -1 ng/L [facility] ([place]) Trop T hs interp Insignificant [facility] ([place]) Blood 10/03/2024 3:47 PM CDT 10/03/2024 3:50 PM CDT Lacy العراقي MD LAB BLOOD ORDERABLES Final Result Performing Organization Address [facility] Co de Phone Number [facility] ([place]) 1 [facility] [place] [address] * (ABNORMAL) Troponin T high-sensitivity 4-hour (10/03/2024 [...] 2:09 PM CDT 10/03/2024 2:12 PM CDT Lacy العراقي MD LAB BLOOD ORDERABLES Final Result Performing Organization Address [facility] Co de Phone Number [facility] ([place]) 1 [facility] [place] [address] * CT Chest PE (CTA) W Contrast [...] Recent guidelines by the Fleischner Society (Radiology 563296,2017) divides patient into low vs. high risk [...] immunosuppression, or patients with known primary cancer. http://pubs.rsna.org/doi/pdf/10.1148/radiol.9946507316 THIS IS AN ELECTRONICALLY VERIFIED FINAL REPORT 10/03/2024 2:24 PM - Electronically signed by Lee Whitaker M.D. AM: AM Report ID: [id number] Reading Location: [id number] Procedure Note Lee Whitaker MD - 10/03/2024 [...] Recent guidelines by the Fleischner Society (Radiology 575496,2017)divides patient into low vs. high risk (for [...] immunosuppression, or patients with known primary cancer. http://pubs.rsna.org/doi/pdf/10.1148/radiol.7028669571 THIS IS AN ELECTRONICALLY VERIFIED FINAL REPORT 10/03/2024 2:24 PM - Electronically signed by Lee Whitaker M.D. AM: AM Report ID: [id number] Reading Location: [place] [address] Lacy العراقي MD IMG CT PROCEDURES Final [...] 1 PM CDT 10/03/2024 12:45 PM CDT us Lacy العراقي MD LAB BLOOD ORDERABLES Final Result [facility] ([place]) [address] [facility] Department [place] [address] * (ABNORMAL) CBC without differential (10/03/2024 11:54 AM CDT) WBC 5.8 3.8 - 9.9 K/cumm Hgb 12.9(L) 13.0 - 17.5 g/dL [facility] ([place]) Hct 37.2(L) 38.9 - 50.3 % [facility] ([place]) Plt 229 150 - 400 K/cumm [facility] ([place]) MPV 10.5 9.1 - 12.3 fL [facility] ([place]) RBC 3.86(L) 4.30 - 5.80 M/cumm [facility] ([place]) MCV 96.4 81.3 - 96.4 fL [facility] ([place]) MCH 33.4(H) 27.1 - 33.3 pg [facility] ([place]) MCHC 34.7 32.3 - 35.7 g/dL [facility] ([place]) RDW CV 12.8 11.1 - 14.9 % [facility]) RDW SD 45.2 35.7 - 48.1 fL [facility] ([place]) NRBC abs 0.00 0.00 - 0.01 K/cumm [facility] ([place]) Blood 10/03/2024 11:5 4 AM CDT 10/03/2024 11:57 AM CDT Narrative [facility] ([place]) - 10/03/2024 12:01 PM CDT Baseline prior to heparin initiation us Lacy العراقي MD LAB BLOOD ORDERABLES Final Result [facility] ([place]) [address] [facility] Department [place] [address] * Ethanol (10/03/2024 11:54 AM CDT) Ethanol <10 <=10 mg/dL Comment: Interpretive Data Legal limit of intoxication > or = 80 mg/dL Levels > or = 400 mg/dL are potentially TOXIC. Current interpretive data was last revised on 2018. Blood 10/03/2024 11:5 4 AM CDT 10/03/2024 11:57 AM CDT us Lacy العراقي MD LAB BLOOD ORDERABLES Final Result [facility] ([place]) 1 [facility] Department [place] [address] * XR Chest PA Lateral 2 Views [...] 11:24 AM - Electronically signed by Marcia Butlerasian M.D. AT: AT Report ID: [id number] Reading Location: [id number] Procedure Note Marcia Linder MD - 10/03/2024 [...] Marcia Linder M.D. AT: AT Report ID: [id number] Reading Location: [id number] us Lacy العراقي MD IMG XR PROCEDURES [...] 1 AM CDT 10/03/2024 10:03 AM CDT Lacy العراقي MD LAB BLOOD ORDERABLES Final Result [facility] ([place]) 1 [facility] [place] [address] * eGFR (10/03/2024 10:01 AM CDT) eGFR [...] LAB BLOOD ORDERABLES Final Result [facility] ([place]) 1 [facility] Department [place] [address] * Differential, auto (10/03/2024 10:01 AM CDT) Neutrophil abs 2.9 1.5 - 6.5 K/cumm Imm gran abs 0.0 0.0 - 0.1 K/cumm [facility] ([place]) Lymphocyte abs 2.1 0.8 - 3.3 K/cumm [facility] ([place]) Monocyte abs 0.5 0.2 - 0.8 K/cumm [...] ORDERABLES Final Result [facility] ([place]) 1 [facility] Department [place] [address] * (ABNORMAL) CBC with auto differential (10/03/2024 10:01 AM CDT) Pathologist [facility] WBC 5.6 3.8 - 9.9 K/cumm Hgb 13.1 13.0 - 17.5 g/dL [facility] ([place]) Hct 38.3(L) 38.9 - 50.3 % [facility] ([place]) Plt 191 150 - 400 K/cumm [facility] ([place]) MPV 9.3 9.1 - 12.3 fL [facility]) RBC 3.99(L) 4.30 - 5.80 M/cumm [facility] ([place]) MCV 96.0 81.3 - 96.4 fL [facility] ([place]) MCH 32.8 27.1 - 33.3 pg [facility] ([place]) MCHC 34.2 32.3 - 35.7 g/dL [facility]) RDW CV 12.7 11.1 - 14.9 % [facility]) RDW SD 45.0 35.7 - 48.1 fL [facility] NRBC abs 0.00 0.00 - 0.01 K/cumm [facility] Blood Venous blood specimen / Unknown 10/03/2024 10:01 AM CDT 10/03/2024 10:03 AM CDT us Lacy العراقي MD LAB BLOOD ORDERABLES Final Result [facility] ([place]) 1 [facility] Department [place] [address] * aPTT (10/03/2024 10:01 AM CDT) Pathologist [facility] aPTT 33 28 - 38 sec [facility] ([place]) Comment: Interpretive Data Heparin therapeutic range: 66.0 - 100.0 seconds. Range based on correlation with therapeutic heparin activity range of 0.3 - 0.7 Units/mL. Current interpretive data was last revised on 2023. Blood 10/03/2024 10:0 1 AM CDT 10/03/2024 11:42 AM CDT Narrative [facility] ([place]) - 10/03/2024 11:49 AM CDT Baseline prior to heparin initiation Lacy العراقي MD LAB BLOOD ORDERABLES Final Result [facility] ([place]) 1 [facility] [address] [place] [address] * Protime-INR (10/03/2024 10:01 AM CDT) PT 11.9 9.7 - 13.0 sec [facility] ([place]) INR 1.10 0.90 - 1.20 [facility] ([place]) Comment: Interpretive data Oral anticoagulant therapeutic ranges: Venous thromboembolism prophylaxis or treatment: 2.0-3.0 CARDIOLOGY Standard range: 2.0-3.0 High-intensity range: 2.5-3.5 Refer to indication-specific guidelines for appropriate target ranges for prosthetic heart valve replacement. Current interpretive data was last revised on 2019. Blood 10/03/2024 10:0 1 AM CDT 10/03/2024 11:42 AM CDT Narrative [facility] ([place]) - 10/03/2024 11:49 AM CDT Baseline prior to heparin initiation Lacy العراقي MD LAB BLOOD ORDERABLES Final Result Performing Organization Address City/[facility]/ZIP Co de Phone Number [facility] ([place]) [address] [facility] [address] [place] [address] * (ABNORMAL) Comprehensive metabolic panel (10/03/2024 10:01 AM CDT) Sodium 137 135 - 145 mmol/L Potassium, pl 3.8 3.3 - 4.9 mmol/L [facility] ([place]) Chloride 105 97 - 110 mmol/L [facility] ([place]) CO2 20(L) 22 - 32 mmol/L [facility] ([place]) Anion gap 13 2 - 15 mmol/L [facility] ([place]) BUN 12 6 - 25 mg/dL [facility] ([place]) Creatinine 0.74(L) 0.80 - 1.30 mg/dL [facility] ([place]) Glucose 99 70 - 199 mg/dL [facility] ([place]) [...] LAB BLOOD ORDERABLES Final Result [facility] ([place]) 1 [facility] [place] [address] * ECG 12 lead (10/03/2024 9:51 AM CDT) 10/03/2024 9:51 AM CDT Narrative [facility] - 10/03/2024 1:54 PM CDT Vent Rate: 62 bpm RR Interval: 959 msec MA Interval: 157 msec QRS Duration: 87 msec QT Interval: 402 msec QTC Interval: 407 msec P-R-T [place]: 28 - 10 - 29 degrees IMPRESSION: SINUS RHYTHM LOW QRS VOLTAGE IN PRECORDIAL LEADS [QRS DEFLECTION < 1.0 mV IN CHEST LEADS] BORDERLINE ECG Electronically Signed By: Jonathan Weathers MD, [facility] us Lacy العراقي MD ECG ORDERABLES Final Resu lt [facility] from Last 3 Months Insurance [employer] ACCESS [place] Advance Directives For more information, please contact: [phone] * Full Code (Latest Code Status on File) Date Activated Date Inactivated Comments 10/03/2024 3:04 PM 10/05/2024 7:12 PM Care Teams Demand Planning Manager Relationship Specialty Start Date End Date Vashti Dixon MD [address] [place] [address] PCP - General Internal Medicine 08/10/21
== END 2024-12-11 15:02 | disposition home or self-care (01) ==
LOC: CHSIMG 15:02
PROVIDERS: PCP Internal Medicine; Visit Provider Internal Medicine
DX: S29.9XXA Unspecified injury of thorax, initial encounter (principal)
CPT/HCPCS: 71046; 71100

== ENCOUNTER 2025-03-27 07:49 | Outpatient (CLI) | payer BC, SELFPAY ==
--- OUTSIDE RECORDS SUMMARY | 2025-03-27 07:54 | XMS_ITS | Clinical Summary ---
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
--- OUTSIDE RECORDS SUMMARY | 2025-03-27 07:54 | XMS_ITS | Clinical Summary ---
Author Organization [facility] [employer] Address [address] [place] [address] Care Team Providers Care Hearing Aid Fitter Name Role Phone Yovana García MD Primary Care Provider Source Comments [facility] [employer],non-owned Affiliates and Associated Physician Practices is amultiple site organization consisting of ambulatory clinics and hospital sitesin [place], [place], [place] and [place]. This disclosure is being madepursuant to the Care Everywhere program and may not contain all information available regarding this patient. Last updated 18.[facility] [employer] Allergies No known active allergies Medications * Be aware that medications may not be up to date on this document. Alwaysverify current medications with the patient. 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
--- OUTSIDE RECORDS SUMMARY | 2025-03-27 07:54 | XMS_ITS | Clinical Summary ---
Author Organization [facility] Address [address] [place] [address] Care Team Providers Care Healthcare Science Specialist Name Role Phone Provider, Not On File [...] Comments Blood Pressure 123/88 06/05/2023 8:10 AM ROLLER LEVELER OPERATOR Pulse 88 06/05/2023 8:10 AM ROLLER LEVELER OPERATOR Temperature 36.3 C (97.3 F) 06/05/2023 8:10 AM ROLLER LEVELER OPERATOR Respiratory Rate 20 06/05/2023 8:10 AM ROLLER LEVELER OPERATOR Oxygen Saturation 97% 06/05/2023 8:10 AM ROLLER LEVELER OPERATOR Inhaled Oxygen Concentration - - Weight 102.1 kg (225 lb) 06/05/2023 8:10 AM ROLLER LEVELER OPERATOR Height - - Body Mass Index - - Plan of Treatment Health Maintenance Due Date Last Done Comments Hepatitis C Virus (HCV) Screening 1979 TdaP Immunization 1979 Hepatitis B Immunization (1 of 3 - 19+ 3-dose series) 1998 Human Papillomavirus (HPV) Immunization (1 - 3-dose SCDM series) 2006 Cologuard 2024 Colonoscopy 2024 Colorectal Cancer Screening 2024 Immunochemical Fecal Occult Blood 2024 Influenza Immunization (#1) 2025 SARS-COV-2 Immunization ( season) 2025 Respiratory Syncytial Virus (RSV) Immunization (Adult) (1 - 1-dose 75+ series) 2054 Meningococcal Immunization (ACWY) Aged Out No longer eligible based on patient's age to complete this topic Pneumococcal Immunization Combined Aged Out No longer eligible based on patient's age to complete this topic Rotavirus Immunization Aged Out No lo nger eligible based on patient's age to complete this topic Insurance [facility] Care Teams Healthcare Science Specialist Relationship Specialty Start Date End Date Provider, Not On File [place] PCP - General 06/05/23
[2025-03-27 08:10] LABS: Add Urine Microscopic? NO; Appearance Urine Clear (Clear); Glucose Urine UA Negative (Negative); Hematocrit 42.9 % (40.0-54.0); Hemoglobin 14.1 g/dL (14.0-18.0); Immature Granulocyte Percent A 0.1 % (0.0-0.0); Leukocyte Esterase Ur Negative LEU/UL (Negative); Lymphocytes Absolute Auto 2.47 K/mm3 (1.10-4.50); Mean Corpuscular HGB Conc 32.9 g/dL (32-36); Mean Corpuscular Hemoglobin 32.9 pg (27.0-31.0); Mean Corpuscular Volume 100.0 fL (78.0-102.0); Nitrate Urine Negative (Negative); Nucleated Red Blood Cells Absolute Auto 0.00 K/mm3 (0.00-0.00); Nucleated Red Blood Cells Perc 0.0 % (0-0.0); Platelet Count Result 170 K/mm3 (150-420); Red Blood Count 4.29 M/mm3 (4.70-6.10); Specific Grav Ur 1.020 (1.010-1.020); White Blood Count 7.8 K/mm3 (4.8-10.8)
[2025-03-27 09:18] LABS: Alanine Aminotransferase 26 U/L (6-50); Albumin Level 4.4 g/dL (3.5-5.1); Alkaline Phosphatase 59 U/L (38-126); Anion Gap 8 mmol/L (4-12); Aspartate Amino Transferase 31 U/L (17-59); Bilirubin,Total 0.8 mg/dL (0.2-1.3); Blood Urea Nitrogen 16 mg/dL (9-20); Calcium 9.5 mg/dL (8.4-10.2); Carbon Dioxide 28 mmol/L (22-30); Chloride 106 mmol/L (98-107); Cholesterol 153 mg/dL (0-200); Creatine Kinase 201 U/L (55-170); Estimated Glomerular Filt Rate > 60; Glucose 100 mg/dL (65-110); HDL Direct 64 mg/dL; Osmolality Calculated 295 mOsm/kg (285-295); Potassium 4.5 mmol/L (3.4-5.0); Sodium 142 mmol/L (137-145); Total Protein 7.4 g/dL (6.3-8.2); Triglycerides 123 mg/dL (<150)
== END 2025-03-27 07:50 | disposition home or self-care (01) ==
LOC: CHSLAB 07:53
PROVIDERS: PCP Internal Medicine; Visit Provider Internal Medicine
DX: E78.2 Mixed hyperlipidemia (principal); N39.0 Urinary tract infection, site not specified
CPT/HCPCS: 36415; 80053; 80061; 81003; 82550; 85025

== ENCOUNTER 2025-04-02 15:37 | Outpatient (CLI) | payer BC, SELFPAY ==
--- NOTE | ~2025-04-02 | XR_ITS ---
EXAMINATION: XR heel RT min 2V, 04/02/2025 15:50 CDT HISTORY: right heel pain/ bone spur. NKI COMPARISON: No comparisons available. Findings: No acute fracture or malalignment. No significant degenerative changes. Soft tissues unremarkable. Impression: No acute fracture or malalignment. Reviewed, dictated and finalized at location P. Impression: No acute fracture or malalignment.
== END 2025-04-02 15:38 | disposition home or self-care (01) ==
LOC: CHSIMG 15:38
PROVIDERS: PCP Internal Medicine; Visit Provider Internal Medicine
DX: M25.561 Pain in right knee (principal)
CPT/HCPCS: 73650

== ENCOUNTER 2025-04-06 14:35 | Outpatient (CLI) | payer BC, SELFPAY ==
--- NOTE | ~2025-04-06 | CT_ITS ---
EXAMINATION:CT diagnostic chest wo con DATE: 04/06/2025 14:50 INDICATION: Pulmonary nodule. TECHNIQUE: Computed tomography (CT) of the chest was performed without intravenous contrast. Automated exposure control and iterative reconstruction technique were employed. The dose-length product (DLP) was 371.96 mGy-cm. COMPARISON: Chest CT 02/10/2021 FINDINGS: The lungs demonstrate mild atelectasis. There is a 2 mm nodule in left upper lobe, likely benign. There is a 3 mm nodule at left major fissure, likely benign. A calcified left lung nodule and calcified left hilar lymph nodes are consistent with old granulomatous disease. No pleural effusion. The heart size is normal. There are coronary artery calcifications. No pericardial effusion. There is a healing fracture of right fourth rib. There is mild thoracic spondylosis. IMPRESSION: 1. Small pulmonary nodules, likely benign. Reviewed, dictated and finalized at location E.
--- OUTSIDE RECORDS SUMMARY | 2025-04-06 14:49 | XMS_ITS | Clinical Summary ---
Author Organization [facility] Address [address] [place] [address] Care Team Providers Care Fruit Preserver Name Role Phone Provider, Not On File [...] Comments Blood Pressure 123/88 06/05/2023 8:10 AM FIELD HANDYMAN Pulse 88 06/05/2023 8:10 AM FIELD HANDYMAN Temperature 36.3 C (97.3 F) 06/05/2023 8:10 AM FIELD HANDYMAN Respiratory Rate 20 06/05/2023 8:10 AM FIELD HANDYMAN Oxygen Saturation 97% 06/05/2023 8:10 AM FIELD HANDYMAN Inhaled Oxygen Concentration - - Weight 102.1 kg (225 lb) 06/05/2023 8:10 AM FIELD HANDYMAN Height - - Body Mass Index - [...] patient's age to complete this topic Insurance [facility] Care Teams Fruit Preserver Relationship Specialty Start Date End Date Provider, Not On File [place] PCP - General 06/05/23
--- OUTSIDE RECORDS SUMMARY | 2025-04-06 14:49 | XMS_ITS | Clinical Summary ---
Author Organization [facility] Address [address] [place] [address] Care Team Providers Care Butting Saw Operator Name Role Phone Yovana García MD Primary Care Provider [phone] Source Comments [facility],non-owned Affiliates and Associated Physician Practices is amultiple site organization consisting of ambulatory clinics and hospital sitesin [place], [place], [place] and [place]. This disclosure is being madepursuant to the Care Everywhere program and may not contain all information available regarding this patient. Last updated 18.[facility] Allergies No known active allergies Medications * Be aware that medications may not be up to date on this document. Alwaysverify current medications with the patient. No known medications Social History Tobacco Use Types Packs/Day Years Used Date Smoking Tobacco: Some Days Smokeless Tobacco: Never Sex and Gender Information Value Date Recorded Sex Assigned at Not on file Legal Sex Male 10:01 AM MANAGER ASSISTED LIVING Gender Identity Not on file Sexual Orientation [...] complete this topic Insurance ANTH Care Teams Butting Saw Operator Relationship Specialty Start Date End Date Yovana García MD [address] [place] [address] PCP - General Surgery 08/10/16
--- OUTSIDE RECORDS SUMMARY | 2025-04-06 14:49 | XMS_ITS | Clinical Summary ---
Author Organization [facility] Address [address] [place] [address] Care Team Providers Care Naturalist Name Role Phone Vashti Dixon MD Primary Care Provider [phone] Allergies Active Allergy Reactions Criticality Noted Date [...] ischemia, unspecified ischemic chest pain type 10/03/2024 Surgical History Surgery Date Site/Laterality Comments CARDIAC CATHETERIZATION 10/05/2024 N/A Procedure: CORONARY ANGIOGRAPHY [id number]; Surgeon: Cuba Jade MD; Location: [facility] CARDIAC AIRPORT OPERATIONS SUPERVISOR; Service: Cardiovascular; Laterality: N/A; CARDIAC CATHETERIZATION 10/05/2024 N/A Procedure: LEFT HEART CATHETERIZATION WITH CORONARY ANGIOGRAPHY AND WITH OR WITHOUT LEFT VENTRICULOGRAM [id number]; Surgeon: Cuba Jade MD; Location: [facility] CARDIAC AIRPORT OPERATIONS SUPERVISOR; Service: Cardiovascular; Laterality: N/A; CARDIAC CATHETERIZATION 10/05/2024 N/A Procedure: Coronary Flow Velocity (CFR) / Instantaneous Flow Velocity (IFR), 1st Vessel; Surgeon: Cuba Jade MD; Location: [facility] CARDIAC AIRPORT OPERATIONS SUPERVISOR; Service: Cardiovascular; Laterality: N/A; Family History Medical History Relation Name Comments Heart disease Father Other Father Heart disease Mother Other Mother Relation Name Status Comments Father Mother Social History Tobacco Use Types Packs/Day Years Used Date Smoking Tobacco: Every Day Cigarettes 0.2 3.6 Started: 09/05/2021 Tobacco Cessation:Ready to Q uit: Not Asked; Counseling Given: Not Answered [facility] Utilities Answer Date Recorded In the past 12 months has e electric, gas, oil, or water company threatened to shut off services in your home? No 10/05/2024 Social Connection and Isolation Panel Answer Date Recorded In a typical week, how many times do you talk on the phone with family, friends, or neighbors? More than three times a week 10/05/2024 How often do you get togethe r with friends or relatives? Three times a week 10/05/2024 Attends Baptism Services Not on file 10/05 Do you belong to any clubs o r organizations such as jainism groups, unions, fraternal or athletic groups, or [...] any time in the past 12 m [facility], were you homeless or living in a residential (including now)? No 10/05/2024 Personal Safety Answer Date Recorded Have you ever been in or are you currently in a harmful physical or emotional relationship or is someone making you feel afraid or unsafe? 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
--- OUTSIDE RECORDS SUMMARY | 2025-04-06 14:49 | XMS_ITS | Clinical Summary ---
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
[2025-04-06 17:00] LABS: Hematocrit 41.3 % (40.0-54.0); Hemoglobin 13.8 g/dL (14.0-18.0); Mean Corpuscular HGB Conc 33.4 g/dL (32-36); Mean Corpuscular Hemoglobin 33.3 pg (27.0-31.0); Mean Corpuscular Volume 99.5 fL (78.0-102.0); Platelet Count Result 179 K/mm3 (150-420); Red Blood Count 4.15 M/mm3 (4.70-6.10); White Blood Count 8.3 K/mm3 (4.8-10.8)
[2025-04-06 17:52] LABS: Alanine Aminotransferase 27 U/L (6-50); Albumin Level 4.7 g/dL (3.5-5.1); Alkaline Phosphatase 54 U/L (38-126); Anion Gap 9 mmol/L (4-12); Aspartate Amino Transferase 32 U/L (17-59); Bilirubin,Total 0.5 mg/dL (0.2-1.3); Blood Urea Nitrogen 17 mg/dL (9-20); Calcium 10.0 mg/dL (8.4-10.2); Carbon Dioxide 28 mmol/L (22-30); Chloride 104 mmol/L (98-107); Estimated Glomerular Filt Rate 58; Glucose 100 mg/dL (65-110); Magnesium 2.0 mg/dL (1.6-2.3); Osmolality Calculated 293 mOsm/kg (285-295); Potassium 4.3 mmol/L (3.4-5.0); Sodium 141 mmol/L (137-145); Total Protein 8.1 g/dL (6.3-8.2)
[2025-04-06 18:08] LABS: Free T3 4.19 pg/mL (2.18-3.98)
[2025-04-06 18:09] LABS: Free T4 Free Thyroxine 1.17 ng/dL (0.78-2.19)
[2025-04-06 18:23] LABS: Thyroid Stimulating Hormone 0.670 uIU/mL (0.465-4.680)
== END 2025-04-06 14:36 | disposition home or self-care (01) ==
PROVIDERS: PCP Internal Medicine; Visit Provider Internal Medicine
DX: R55 Syncope and collapse (principal); R91.1 Solitary pulmonary nodule
CPT/HCPCS: 36415; 71250; 80053; 83735; 84439; 84443; 84481; 85027

== ENCOUNTER 2025-04-09 13:42 | Outpatient (CLI) | payer BC, SELFPAY ==
--- NOTE | ~2025-04-09 | US_ITS ---
EXAMINATION: US carotid duplex BI DATE: 04/09/2025 14:04 INDICATION: Syncope. TECHNIQUE: Grayscale, color Doppler, and pulsed Doppler images of the cervical carotid arteries were obtained. The degree of vessel stenosis is placed in one of the following categories: normal, <50%, 50-69%, >=70% but less than near- occlusion, near-occlusion, or total occlusion. Note that percent stenosis relative to normal distal artery lumen diameter is indirectly measured from velocity measurements as described by Júnior, et al. Radiology 2003; 229:340-346. COMPARISON: None. FINDINGS: RIGHT: The right common carotid artery (CCA) peak systolic velocity (PSV) is 146 cm/s. The right internal carotid artery (ICA) PSV is 94 cm/s. The right ICA end- diastolic velocity (EDV) is 31 cm/s. The right ICA/CCA PSV ratio is 0.6. Grayscale and color Doppler images yield an estimate of <50% diameter reduction from plaque in the ICA. There is antegrade flow in the right vertebral artery. LEFT: The left CCA PSV is 133 cm/s. The left ICA PSV is 12 cm/s. The left ICA EDV is 34 cm/s. The left ICA/CCA PSV ratio is 0.8. Grayscale and color Doppler images yield an estimate of <50% diameter reduction from plaque in the ICA. There is antegrade flow in the left vertebral artery. IMPRESSION: 1. <50% stenosis in the right internal carotid artery. 2. <50% stenosis in the left internal carotid artery. Reviewed, dictated and finalized at location E.
--- OUTSIDE RECORDS SUMMARY | 2025-04-09 13:43 | XMS_ITS | Clinical Summary ---
Author Organization [facility] Address [address] [place] [address] Care Team Providers Care Bridal Consultant Name Role Phone Vashti Dixon MD Primary Care Provider [phone] Allergies Active Allergy Reactions Criticality Noted Date [...] CARDIAC CATHETERIZATION 10/05/2024 N/A Procedure: CORONARY ANGIOGRAPHY [id number]; Surgeon: Cuba Jade MD; Location: [facility] CARDIAC BIODIESEL PRODUCTION ASSOCIATE; Service: Cardiovascular; Laterality: N/A; CARDIAC CATHETERIZATION 10/05/2024 N/A Procedure: LEFT HEART CATHETERIZATION WITH CORONARY ANGIOGRAPHY AND WITH OR WITHOUT LEFT VENTRICULOGRAM [id number]; Surgeon: Cuba Jade MD; Location: [facility] CARDIAC BIODIESEL PRODUCTION ASSOCIATE; Service: Cardiovascular; Laterality: N/A; CARDIAC CATHETERIZATION 10/05/2024 N/A Procedure: Coronary Flow Velocity (CFR) / Instantaneous Flow Velocity (IFR), 1st Vessel; Surgeon: Cuba Jade MD; Location: [facility] CARDIAC BIODIESEL PRODUCTION ASSOCIATE; Service: Cardiovascular; Laterality: N/A; Family History Medical History Relation Name Comments Heart disease Father Other Father Heart disease Mother Other Mother Relation Name Status Comments Father Mother Social History Tobacco Use Types Packs/Day Years Used Date Smoking Tobacco: Every Day Cigarettes 0.2 3.6 Started: 09/05/2021 Tobacco Cessation:Ready to Q uit: Not Asked; Counseling Given: Not Answered [facility] Utilities Answer Date Recorded In the [...] relatives? Three times a week 10/05/2024 Attends Jew Services Not on file 10/05 Do you belong to any clubs o r organizations such as taoist groups, unions, fraternal or athletic groups, or [...] any time in the past 12 m [facility], were you homeless or living in a prison (including now)? No 10/05/2024 Personal Safety Answer Date Recorded Have you ever been in or are you currently in a harmful physical or emotional relationship or is someone making you feel afraid or unsafe? Denies 10/03/2024 Sex and Gender Information Value Date Recorded Sex Assigned at Not on file Legal Sex Male 7:42 PM SENIOR TREASURY ANALYST Gender Identity Not on file Sexual Orientation [...] series) 2006 Influenza Vaccine (#1) 2025 [place] For more information, please contact: [phone] * Full Code (Latest Code Status on File) Date Activated Date Inactivated Comments 10/03/2024 3:04 PM 10/05/2024 7:12 PM Care Teams Bridal Consultant Relationship Specialty Start Date End Date Vashti Dixon MD [address] [place] [address] PCP - General Internal Medicine 08/10/21
--- OUTSIDE RECORDS SUMMARY | 2025-04-09 13:43 | XMS_ITS | Clinical Summary ---
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
--- OUTSIDE RECORDS SUMMARY | 2025-04-09 13:43 | XMS_ITS | Clinical Summary ---
Author Organization [facility] Address [address] [place] [address] Care Team Providers Care Core Stacker Name Role Phone Provider, Not On File [...] Comments Blood Pressure 123/88 06/05/2023 8:10 AM EMT B Pulse 88 06/05/2023 8:10 AM EMT B Temperature 36.3 C (97.3 F) 06/05/2023 8:10 AM EMT B Respiratory Rate 20 06/05/2023 8:10 AM EMT B Oxygen Saturation 97% 06/05/2023 8:10 AM EMT B Inhaled Oxygen Concentration - - Weight 102.1 kg (225 lb) 06/05/2023 8:10 AM EMT B Height - - Body Mass Index - [...] patient's age to complete this topic Insurance [facility] Care Teams Core Stacker Relationship Specialty Start Date End Date Provider, Not On File [place] PCP - General 06/05/23
--- OUTSIDE RECORDS SUMMARY | 2025-04-09 13:43 | XMS_ITS | Clinical Summary ---
Author Organization [facility] Address [address] [place] [address] Care Team Providers Care Layout Technician Name Role Phone Yovana García MD Primary Care Provider [phone] Source Comments [facility],non-owned Affiliates and Associated Physician Practices is amultiple site organization consisting of ambulatory clinics and hospital sitesin [place], [place], [place] and [place]. This disclosure is being madepursuant to the Care Everywhere program and may not contain all information available regarding this patient. Last updated 18.[facility] Allergies No known active allergies Medications * Be aware that medications may not be up to date on this document. Alwaysverify current medications with the patient. 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
== END 2025-04-09 13:43 | disposition home or self-care (01) ==
LOC: CHSIMG 13:42
PROVIDERS: PCP Internal Medicine; Visit Provider Internal Medicine
DX: R55 Syncope and collapse (principal); I65.23 Occlusion and stenosis of bilateral carotid arteries
CPT/HCPCS: 93880

== ENCOUNTER 2025-04-13 07:14 | Outpatient (CLI) | payer BC, SELFPAY ==
--- NOTE | 2025-05-11 08:05 | WPDHOLTEREM ---
Holter/Event Monitor Holter/Event Monitor Date of procedure: 04/13/25 Holter/Event Procedure: Event Monitor Indications: Syncope Conclusion: 1. 2 separate event monitor for total of 16 days on 04/13/25. 2. Predominant rhythm is sinus rhythm. HR range 47-154 bpm; average 85 bpm. 3. There are intermittent premature supraventricular complexes, rare supraventricular couplets. No supraventricular tachycardia. 4. There are occasional premature ventricular complexes and rare ventricular couplets, longest ventricular bigeminy was 17.2 seconds. There is 1 episode of ventricular tachycardia at 154 bpm lasting 5 beats. 5. No significant pauses greater than 3 seconds. 6. No symptoms available for correrlation.
== END 2025-04-13 07:15 | disposition home or self-care (01) ==
LOC: CHSCARD 07:15
PROVIDERS: PCP Internal Medicine; Visit Provider Internal Medicine
DX: R55 Syncope and collapse (principal)
CPT/HCPCS: 93246

== ENCOUNTER 2025-06-21 00:34 | Day surgery (SDC) | payer BC, SELFPAY ==
--- OUTSIDE RECORDS SUMMARY | 2025-06-21 00:36 | XMS_ITS | Clinical Summary ---
Author Organization [facility] Address [address] [place] [address] Care Team Providers Care Asset Coordinator Name Role Phone Yovana García MD Primary Care Provider [phone] Source Comments [facility],non-owned Affiliates and Associated Physician Practices is amultiple site organization consisting of ambulatory clinics and hospital sitesin [place], [place], [place] and [place]. This disclosure is being madepursuant to the Care Everywhere program and may not contain all information available regarding this patient. Last updated 18.[facility] Allergies No known active allergies Medications * Be aware that medications may not be up to date on this document. Alwaysverify current medications with the patient. 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
--- OUTSIDE RECORDS SUMMARY | 2025-06-21 00:36 | XMS_ITS | Clinical Summary ---
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
--- OUTSIDE RECORDS SUMMARY | 2025-06-21 00:36 | XMS_ITS | Clinical Summary ---
Author Organization [facility] Address [address] [place] [address] Care Team Providers Care Information Support Project Manager Name Role Phone Provider, Not On File [...] Comments Blood Pressure 123/88 06/05/2023 8:10 AM HUMAN INTELLIGENCE Pulse 88 06/05/2023 8:10 AM HUMAN INTELLIGENCE Temperature 36.3 C (97.3 F) 06/05/2023 8:10 AM HUMAN INTELLIGENCE Respiratory Rate 20 06/05/2023 8:10 AM HUMAN INTELLIGENCE Oxygen Saturation 97% 06/05/2023 8:10 AM HUMAN INTELLIGENCE Inhaled Oxygen Concentration - - Weight 102.1 kg (225 lb) 06/05/2023 8:10 AM HUMAN INTELLIGENCE Height - - Body Mass Index - - Plan of Treatment Health Maintenance Due Date Last Done Comments Hepatitis C Virus (HCV) Screening 1979 TdaP Immunization 1979 Hepatitis B Immunization (1 of 3 - 19+ 3-dose series) 1998 Cologuard 2024 Colonoscopy 2024 Colorectal Cancer Screening 2024 Immunochemical Fecal Occult Blood 2024 Influenza Immunization (#1) 2025 SARS-COV-2 Immunization ( - 2024- season) 2025 Respiratory Syncytial Virus (RSV) Immunization (Adult) (1 - 1-dose 75+ series) 2054 Human Papillomavirus (HPV) Immunization (No Doses Required) Completed Meningococcal Immunization (ACWY) Aged Out No longer eligible based on patient's age to complete this topic Pneumococcal Immunization Combined Aged Out No longer eligible based on patient's age to complete this topic Rotavirus Immunization Aged Out No lo nger eligible based on patient's age to complete this topic [place] [place] [address] Care Teams Information Support Project Manager Relationship Specialty Start Date End Date Provider, Not On File [place] PCP - General 06/05/23
--- OUTSIDE RECORDS SUMMARY | 2025-06-21 00:36 | XMS_ITS | Clinical Summary ---
Author Organization [facility] Address [address] [place] [address] Care Team Providers Care Salesperson Art Objects Name Role Phone Vashti Dixon MD Primary Care Provider + [phone] Allergies Active Allergy Reactions Criticality Noted Date Comments Mold Sneezing Low 10/31/2021 Ragweed Sneezing Low 10/31/2021 Medications celecoxib (CeleBREX) 400 mg capsule Take 1 capsule (400 mg total) by mouth daily 2 Active cetirizine (ZyrTEC) 10 mg tablet Take 1 tablet (10 mg total) by mouth daily 2 Active fluticasone propionate (FLONASE) 50 mcg/actuation nasal spray INSTILL 2 SPRAYS INTO EACH NOSTRIL EVERY DAY 2 Active meloxicam (MOBIC) 7.5 mg tablet Take 1 tablet (7.5 mg total) by mouth daily 30 tablet 2 2 Active Additional Information Patient not taking.Reported on 04/22/2025 montelukast (SINGULAIR) 10 mg tablet Take 1 tablet (10 mg total) by mouth nightly Active aspirin 81 mg chewable tablet Take 1 tablet (81 mg total) by mouth daily 30 tablet 11 5 10/06/19 26 Active Additional Information Patient not taking.Reported on 04/22/2025 losartan (COZAAR) 25 mg tablet Take 0.5 tablets (12.5 mg total) by mouth daily 45 tablet 3 5 11/13/19 26 Active atorvastatin (LIPITOR) 10 mg tablet Take 1 tablet (10 mg total) by mouth daily Active pantoprazole DR (PROTONIX) 40 mg EC tablet Take 1 tablet (40 mg total) by mouth daily Active venlafaxine XR (EFFEXOR-XR) 75 mg 24 hr capsule Take 1 capsule (75 mg total) by mouth Active Active Problems Problem Noted Date Diagnosed Date Obesity 04/22/2025 Syncope and collapse 04/22/2025 Essential hypertension 04/22/2025 Chest pain 10/05/2024 Chest pain due to myocardial ischemia, unspecified ischemic chest pain type 10/03/2024 Encounters Date Type Department Care Team Description 04/22/2025 9:45 AM CDT Office Visit [employer] [facility] at [address] [place] [id number] Dayday Moore NP Chest pain due to myocardial ischemia, unspecified ischemic chest pain type (Primary Dx); Syncope and collapse; Obesity, unspecified class, unspecified obesity type, unspecified whether serious comorbidity present; Essential hypertension from Last 3 Months Surgical History Surgery Date Site/Laterality Comments CARDIAC CATHETERIZATION 10/05/2024 N/A Procedure: CORONARY ANGIOGRAPHY 13790; Surgeon: Cuba Jade MD; Location: [facility] CARDIAC SEWING MACHINE [facility]CH[facility]IC; Service: Cardiovascular; Laterality: N/A; CARDIAC CATHETERIZATION 10/05/2024 N/A Procedure: LEFT HEART CATHETERIZATION WITH CORONARY ANGIOGRAPHY AND WITH OR WITHOUT LEFT VENTRICULOGRAM 01916; Surgeon: Cuba Jade MD; Location: [facility] CARDIAC [facility]WING MACHINE MECH[facility]IC; Service: Cardiovascular; Laterality: N/A; CARDIAC CATHETERIZATION 10/05/2024 N/A Procedure: Coronary Flow Velocity (CFR) / Instantaneous Flow Velocity (IFR), 1st Vessel; Surgeon: Cuba Jade MD; Location: [facility] CARDIAC [facility]WING MACHINE MECHANIC; Service: Cardiovascular; Laterality: N/A; Family History Medical History Relation Name Comments Heart disease Father Other Father Heart disease Mother Other Mother Relation Name Status Comments Father Mother Social History Tobacco Use Types Packs/Day Years Used Date Smoking Tobacco: Every Day Cigarettes 0.2 3.8 Started: 09/05/2021 Tobacco Cessation:Ready to Q uit: Not Asked; Counseling Given: Not Answered [facility] Utilities Answer Date Recorded In the past 12 months has th e electric, gas, oil, or water [employer] threatened to shut off services in your home? No 10/05/2024 Social Connection and Isolation Panel Answer Date Recorded In a typical week, how many times do you talk on the phone with family, friends, or neighbors? More than three times a week 10/05/2024 How often do you get togethe r with friends or relatives? Three times a week 10/05/2024 Attends [employer] Services Not on file 10/05 Do you belong to any clubs o r organizations such as nondenominational groups, unions, fraternal or athletic groups, or [...] any time in the past 12 m [facility], were you homeless or living in a half-way (including now)? No 10/05/2024 Personal Safety Answer Date Recorded Have you ever been in or are you currently in a harmful physical or emotional relationship or is someone making you feel afraid or unsafe? Denies 10/03/2024 Sex and Gender Information Value Date Recorded Sex Assigned at Not on file Legal Sex Male 7:42 PM [employer]ALTH [employer]OMOTION COORDINATOR Gender Identity Not on file Sexual Orientation Not on file Last Filed Vital Signs Vital Sign Reading Time Taken Comments Blood Pressure 123/82 04/22/2025 9:36 AM CDT Pulse 73 04/22/2025 9:36 AM CDT Temperature 36.8 C (98.2 F) 10/05/2024 7:34 AM CDT Respiratory Rate 18 04/22/2025 9:36 AM CDT Oxygen Saturation 96% 10/05/2024 2:15 PM CDT Inhaled Oxygen Concentration - - Weight 106.1 kg (234 lb) 04/22/2025 9:36 AM CDT Height 188 cm (6' 2) 04/22/2025 9:36 AM CDT Body Mass Index 30.04 04/22/2025 9:36 AM CDT Plan of Treatment Health Maintenance Due Date Last Done Comments Colon Cancer Screening-Colonoscopy 1979 Depression Screening 1979 Hepatitis C Screening 1979 Varicella Vaccines (1 of 2 - 13+ 2-dose series) 1992 Hepatitis B Screening 1997 Regular Well Visit/Exam 18-64 1997 Pneumococcal vaccine <65 (1 of 2 - PCV) 1998 HPV Vaccines (1 - 3-dose SCDM series) 2006 Influenza Vaccine (#1) 2025 DTaP/Tdap/Td Vaccine (2 - Td or Tdap) 09/15/202805/2019 Insurance [facility] [employer] [place] For more information, please contact: [phone] * Full Code (Latest Code Status on File) Date Activated Date Inactivated Comments 10/03/2024 3:04 PM 10/05/2024 7:12 PM Care Teams Salesperson Art Objects Relationship Specialty Start Date End Date Vashti Dixon MD [address] [place] [address] PCP - General Internal Medicine 08/10/21
[2025-06-21 09:40] VITALS: BP 129/91; PULSE 87; RESP 16; TEMP 36.4; O2SAT 96
[2025-06-21] MEDS: LACTATED RINGERS 1,000 ML 150 ML IV CONT (09:50)
--- NOTE | 2025-06-21 10:15 | WPDANESEPPF ---
Anes - Initial Pre Proc Eval Procedure: Operation Date: 06/21/25 11:00 Proposed Procedures p Screening Colonoscopy - Danish Hill DO Date/Time: 06/21/25 10:15 Surgeon: Danish Hill DO Pre Op Diagnosis: screening for malignant neoplasm of colon Patient Data Age: 44 Gender: M Height: 1.88 m Weight: 101.1 kg Last Vital Signs Temp 97.6 F 06/21/25 09:40 Pulse 87 06/21/25 09:40 Resp 16 06/21/25 09:40 BP 129/91 H 06/21/25 09:40 Pulse Ox 96 06/21/25 09:40 O2 Del Method Room Air 06/21/25 09:40 Allergies Allergy/AdvReac Type Severity Reaction Status Date / Time poison catia extract Allergy Unknown unknown Verified 06/21/25 09:39 Home Medications ?Medication ?Instructions ?Recorded ?Confirmed ?Type montelukast 10 mg tablet 10 mg PO DAILY 10/21/23 06/21/25 History prednisone 10 mg tablet 10 mg DAILY 10/21/23 10/21/23 History atorvastatin 10 mg tablet 10 mg PO DAILY 05/31/25 06/21/25 History celecoxib 400 mg capsule 400 mg PO DAILY 05/31/25 06/21/25 History cetirizine 10 mg tablet (24Hour 10 mg PO DAILY PRN allergy symptoms 05/31/25 06/21/25 History Allergy) fluticasone propionate 50 2 spray intranasal DAILY PRN nasal 05/31/25 06/21/25 History mcg/actuation nasal congestion spray,suspension (24 Hour Allergy Relief) losartan 25 mg tablet 25 mg PO DAILY 05/31/25 06/21/25 History pantoprazole 40 mg tablet,delayed 40 mg PO DAILY 05/31/25 06/21/25 History release venlafaxine 75 mg capsule,extended 75 mg PO DAILY 05/31/25 06/21/25 History release 24 hr Patient hx anesthesia problems: none Family hx anesthesia problems: none Results Review: All pre-operative results and documents have been reviewed as part of the pre-operative evaluation. [facility] Past Medical History Medical History Allergies Cough Encounter for HCV screening test for low risk patient Fatigue Annual visit for general adult medical examination without abnormal findings Chronic sinusitis Seasonal allergies Surgical History Surgical History No history of previous surgery History of placement of ear tubes Family History Family History Father Family history of type 2 diabetes mellitus Social History Social History Smoking status: Former smoker Tobacco type: cigarettes Alcohol intake: current Substance use: never Substance use type: does not use Living arrangements: with family Additional living arrangements comments: . 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 Gender identity (if verbalized by the patient): Male Anes - Eval Final PreProcedure Day of Procedure 06/21/25 10:15 Patient weight: overweight Lungs: normal air movement Airway: Mallampati scale class II Neurological: alert and oriented Last oral intake: >/= 8 hours ASA classification: II Emergent: no Anesthetic plan: proceed Anesthesia type and monitoring: general GIVS and standard monitoring Results Review: All pre-operative results and documents have been reviewed as part of the pre-operative evaluation. 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 Informed Consent: The patient's anesthetic plan and its attendant risks and benefits were discussed with the patient/family/POA. Questions were solicited and answers provided to the satisfaction of the patient/family/POA.
--- NOTE | 2025-06-21 10:44 | PM.IMHP2 ---
H&P: HPI History of Present Illness Date/Time: 06/21/25 10:44 Chief Complaint: Screening for colorectal cancer Narrative: This is a 44-year-old man who presents for his 1st colonoscopy. He denies any hematochezia or melena. He denies family history of colon cancer. Review of Systems Review of Systems: All systems reviewed & are unremarkable except as noted in HPI and below Constitutional: Constitutional: Denies chills, Denies fever(s), Denies headache(s) and Denies weight loss Eyes: Eyes: Denies change in vision ENT: Denies dizziness, Denies headache(s), Denies neck mass and Denies throat swelling Cardiovascular: Cardiovascular: Denies chest pain, Denies lightheadedness and Denies dyspnea Respiratory: Respiratory: Denies cough, Denies dyspnea and Denies wheezing Gastrointestinal: Gastrointestinal: Denies abdominal pain, Denies change in bowel habits, Denies nausea and Denies vomiting Genitourinary: Genitourinary: Denies hematuria and Denies dysuria Musculoskeletal: Musculoskeletal: Reports as per HPI Integumentary/Breasts: Skin/Breast: Reports as per HPI Neurologic: Denies dizziness and Denies headache(s) Allergic/Immunologic: Allergic/Immunologic: Denies throat swelling and Denies wheezing PMFSH Past Medical History Medical History Allergies Cough Encounter for HCV screening test for low risk patient Fatigue Annual visit for general adult medical examination without abnormal findings Chronic sinusitis Seasonal allergies Surgical History Surgical History No history of previous surgery History of placement of ear tubes Family History Family History Father Family history of type 2 diabetes mellitus Social History Social History Smoking status: Former smoker Tobacco type: cigarettes Alcohol intake: current Substance use: never Substance use type: does not use Living arrangements: with family Additional living arrangements comments: . 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 Gender identity (if verbalized by the patient): Male Meds Home Medications and Allergies Home Medications ?Medication ?Instructions ?Recorded ?Confirmed ?Type montelukast 10 mg tablet 10 mg PO DAILY 10/21/23 06/21/25 History prednisone 10 mg tablet 10 mg DAILY 10/21/23 10/21/23 History atorvastatin 10 mg tablet 10 mg PO DAILY 05/31/25 06/21/25 History celecoxib 400 mg capsule 400 mg PO DAILY 05/31/25 06/21/25 History cetirizine 10 mg tablet (24Hour 10 mg PO DAILY PRN allergy symptoms 05/31/25 06/21/25 History Allergy) fluticasone propionate 50 2 spray intranasal DAILY PRN nasal 05/31/25 06/21/25 History mcg/actuation nasal congestion spray,suspension (24 Hour Allergy Relief) losartan 25 mg tablet 25 mg PO DAILY 05/31/25 06/21/25 History pantoprazole 40 mg tablet,delayed 40 mg PO DAILY 05/31/25 06/21/25 History release venlafaxine 75 mg capsule,extended 75 mg PO DAILY 05/31/25 06/21/25 History release 24 hr Allergies Allergy/AdvReac Type Severity Reaction Status Date / Time poison catia extract Allergy Unknown unknown Verified 06/21/25 09:39 Vital Signs Vital Signs - 24 hr 06/21/25 09:40 Temperature 97.6 F Pulse Rate 87 Respiratory Rate 16 Blood Pressure 129/91 H Pulse Oximetry 96 Oxygen Delivery Room Air Exam Const: General: no acute distress and alert Orientation/consciousness: patient oriented x3 HENMT: Head: normocephalic and atraumatic Ears: hearing grossly normal bilaterally Face/Nose/Sinus: Normal nares present Mouth: Yes Normal oral and palatal mucosa present Eyes: Periorbital: periorbital findings normal Sclera: sclerae normal EOM: EOMs intact bilaterally Neck: Neck: normal visual inspection, no lymphadenopathy and trachea midline Chest: Chest palpation & inspection: normal inspection of the chest Resp: Effort & Inspection: normal respiratory effort Auscultation: clear to auscultation bilaterally Cardio: Jugular venous distension: no JVD Rate: regular rate Rhythm: regular rhythm Heart sounds: S1 normal heart sound present and S2 normal heart sound present Peripheral pulses: Peripheral pulses 2+ throughout GI: Inspection: normal to inspection GI Palp: Yes Soft to palpation, No Tenderness to palpation present (GI), No Guarding due to palpation present (GI) and No Rebound tenderness present Percussion: Yes normal to percussion Auscultation: normal bowel sounds : General: Yes no CVA tenderness Back/Spine/Pelvis: Back: no CVA tenderness Neuro: General: patient oriented x3, no focal motor deficits and CN's II-XI intact bilaterally Cognition (Neuro): normal cognition Speech: normal speech Motor exam (neuro): 5/5 motor strength present throughout Extrem: General: capillary refill normal and no clubbing, cyanosis or edema Assessment and Plan Assessment and plan (1) Screening for colorectal cancer: Code(s): Z12.11 - Encounter for screening for malignant neoplasm of colon; Z12.12 - Encounter for screening for malignant neoplasm of rectum Status: Acute Assessment and Plan: I have recommended colonoscopy. I have discussed the procedure, risks, benefits, and alternatives. Questions were answered. Patient is agreeable to proceed.
[2025-06-21 11:03] VITALS: BP 124/94; PULSE 69; RESP 18; O2SAT 99
[2025-06-21 11:13] VITALS: BP 133/101; PULSE 62; RESP 17; O2SAT 99
[2025-06-21 11:23] VITALS: BP 155/87; PULSE 64; RESP 20; O2SAT 99
== END 2025-06-21 11:34 | disposition home or self-care (01) ==
PROVIDERS: PCP Internal Medicine; Visit Provider Surgery
PROC: 0DJD8ZZ Inspection of Lower Intestinal Tract, Via Natural or Artificial Opening Endoscopic (ICD-10-PCS; CPT 45378; principal; 2025-06-21 11:00)
DX: Z12.11 Encounter for screening for malignant neoplasm of colon (principal); I10 Essential (primary) hypertension; E78.5 Hyperlipidemia, unspecified; J32.9 Chronic sinusitis, unspecified; R53.83 Other fatigue; F17.210 Nicotine dependence, cigarettes, uncomplicated; Z79.52 Long term (current) use of systemic steroids; Z79.1 Long term (current) use of non-steroidal anti-inflammatories (NSAID); Z98.890 Other specified postprocedural states
CPT/HCPCS: 45378; J2003; J2704; J7120